=== PATIENT | male | born 1990 | race Caucasian/White ===

== ENCOUNTER 2024-03-12 21:00 | Inpatient (IN) ==
--- NOTE | 2024-03-12 21:24 | Emergency Department Note ---
Impression & Plan Suicidal ideation, Homicidal ideation ED Provider Note NAME: EVELYN CHOW AGE: 34 SEX: M : 1990 ARRIVES VIA: Law Enforcement Transport INFORMANT: [Patient][nursing] ED PROVIDER(S): [Bereket Morales MD] CHIEF COMPLAINT: Mental health evaluation HISTORY OF PRESENT ILLNESS: The patient is a 34-year-old male with intellectual disability. He presents by police escort. A 302 warrant has been signed. As per the warrant, the patient threatened to poison his mother's drink, slit her throat and then kill himself. The patient arrives cooperative, he denies making any comments to harm his mother or to harm himself. He is not homicidal he is not suicidal. He blames this whole thing on one of his neighbors. PMHx/PSHx/Social Hx: See Below PHYSICAL EXAM: GENERAL: Patient is in no acute distress. HEENT: No acute trauma, normocephalic atraumatic, mucous membranes moist, no nasal congestion. NECK: No stridor, no adenopathy, no meningismus, trachea is midline. LUNGS: Clear to auscultation bilaterally, no wheeze, no rhonchi, breath sounds equal. HEART: Mildly tachycardic, regular rhythm, no murmurs. ABDOMEN: Soft, nontender, no peritonitis. EXTREMITIES: No cyanosis, full range of motion of all the joints without pain or difficulty. NEUROLOGIC: Oriented x 3, no acute motor or sensory deficits, no focal weakness. Findings of intellectual disability noted. SKIN: No jaundice, no diaphoresis. Psychiatric: Cooperative, currently denies suicidal or homicidal ideation. He is a poor historian. DIFFERENTIAL DIAGNOSIS: Suicidality, homicidality, electrolyte imbalance, among others EMERGENCY DEPARTMENT PROCEDURES: MEDICAL DECISION MAKING: There is no leukocytosis or concerning anemia. There is a normal platelet count. No renal failure or significant electrolyte abnormality. No concerning liver enzyme elevation. Patient appears to be in a euthyroid state. Urinalysis does not show infection. Urine tox was negative. Alcohol level and aspirin levels were undetectable. COVID test was negative. Tylenol level was slightly high at 48, the patient had apparently taken 2 extra strength Tylenol before arrival. A repeat Tylenol level several hours later showed that the value was decreasing-no toxicity. Patient has been cooperative. He was felt medically clear. Psychiatry case management did spend some time talking with him and his mother. At this point, it has been decided to uphold the 302 as the patient appears to be a risk to himself as well as others. The medical portion of the 302 was completed and signed. Currently, the patient is resting comfortably. He has not been aggressive or loud. A psychiatric bed search is underway. For now, his care is being assumed by Dr. Underwood at the change of shift. Prior/Outside records/notes reviewed: None Imaging/x-ray results per my interpretation: Chronic Medical/Social conditions affecting care: Intellectual disability Care/Management discussed with: Psychiatry case management. Level of care consideration(s): After review of the information above and other included data: -- The patient will require an involuntary psychiatric admission. DISPOSITION: Still a patient in our ED. Past Med/Surg History Problem List Homicidal ideation (Acute) Suicidal ideation (Acute) Gastric ulcer (Chronic) Mental retardation (Chronic) C. difficile colitis (Acute) C. difficile diarrhea Hypokalemia (Acute) Medical History Chronic abdominal pain Social History Smoking Status: Current every day smoker Tobacco Type: Cigarettes and Smokeless Tobacco (Dip or Chew) Feels Safe at Home: Yes and No Gender Identity: Male Allergies Allergies Allergy/AdvReac Type Severity Reaction Status Date / Time ibuprofen AdvReac Unknown VOMITING Unverified 07/31/15 11:20 naproxen AdvReac Unknown vomiting Verified 07/31/15 11:20 Home Meds Home Medications Medication Instructions Recorded Confirmed [id number] 2 tabs PO BID PRN Migraine ##0 08/23/15 (MIGRAINE FORMULA) Acetaminophen/Diphenhydramine 2 tab PO HS #0 tabs 08/23/15 06/27/23 (Tylenol Pm) DIPHENHYDRAMINE HCL (BENADRYL) 50 mg PO PRN UD ##0 08/23/15 Previous Rx's Medication Instructions Recorded Vancomycin HCl 250 mg PO UD 1 day ##1 09/01/15 Results & Data (ED) Vital Signs Vital Signs - 24 hr 03/12/24 21:22 03/12/24 22:45 03/12/24 23:00 Temperature 36.8 C Temperature Source Oral Pulse Rate 97 H Pulse Rate [Finger] 89 82 Respiratory Rate 19 16 16 Respiratory Effort / Characteristics Non-Labored Spontaneous Non-Labored Respiratory Depth Normal Normal Respiratory Pattern Regular Regular Blood Pressure 137/84 Blood Pressure [Right Arm] 153/83 H 132/77 Blood Pressure Mean 101 Blood Pressure Mean [Right Arm] 106 95 Pulse Oximetry 97 99 97 Oxygen Delivery Method Room Air Room Air Room Air Sepsis Recent Fever Within 48 Hours No Sepsis New/Unexplained Change in Mental Status No Sepsis Action Taken by Nursing No Action Required Home Medications Current Medication List: was personally reviewed by me Laboratory Data Attestation: I reviewed the patient's lab results. 03/12/24 21:26 03/12/24 21:26 Lab Results 03/12/24 03/12/24 Range/Units 21:26 22:50 WBC 5.96 (4.8-10.8) K/ul RBC 4.28 L (4.70-6.10) M/uL Hgb 14.0 (14.0-18.0) g/dl Hct 42.5 (42.0-52.0) % MCV 99.3 (80.0-100.0) fL MCH 32.7 (25.0-34.0) pg MCHC 32.9 (32.0-36.0) g/dL RDW Std Deviation 46.4 H (36.4-46.3) fL RDW Coeff of Brandon 12.6 (11.5-14.5) % Plt Count 244 (130-400) K/uL MPV 9.5 (9.4-12.4) fL Immature Gran % (Auto) 0.2 % Neut % (Auto) 75.8 % Lymph % (Auto) 16.6 % Mcdowell % (Auto) 6.7 % Eos % (Auto) 0.2 % Baso % (Auto) 0.5 % Neut # (Auto) 4.52 (1.40-6.50) K/uL Lymph # (Auto) 0.99 L (1.20-3.40) K/uL Mcdowell # (Auto) 0.40 (0.11-0.59) K/uL Eos # (Auto) 0.01 (0.00-0.50) K/uL Baso # (Auto) 0.03 (0.00-0.20) K/uL Immature Gran # (Auto) 0.01 (0.01-0.20) K/uL Sodium 141 (136-145) mmol/L Potassium 3.6 (3.5-5.1) mmol/L Chloride 106 (98-107) mmol/L Carbon Dioxide 26 (21-32) mmol/L Anion Gap 9 (3-11) BUN 11 (6-23) mg/dl Creatinine 1.07 (0.6-1.4) mg/dl Est Cr Clr Drug Dosing 75.7 ml/min eGFR 94.56 BUN/Creatinine Ratio 10.3 (10-20) Glucose 98 (70-99(Fasting)) mg/dl Calcium 9.6 (8.6-10.3) mg/dl Total Bilirubin 0.2 (0.2-1.0) mg/dl AST 19 (13-39) U/L ALT 13 (7-52) U/L Alkaline Phosphatase 65 (34-104) U/L Total Protein 7.6 (6.0-8.3) gm/dl Albumin 4.9 (3.4-5.0) gm/dl Globulin 2.7 (2.5-4.0) gm/dl Albumin/Globulin Ratio 1.8 (0.9-2) TSH 1.452 (0.300-4.500) uIu/ml Urine Color Yellow Urine Appearance Clear (Clear) Urine pH 6.0 (4.5-7.5) Ur Specific [place] 1.005 (1.000-1.030) Urine Protein Negative (Negative) Urine Glucose (UA) Negative (Negative) Urine Ketones Negative (Negative) Urine Blood Negative (Negative) Urine Nitrite Negative (Negative) Urine Bilirubin Negative (Negative) Urine Urobilinogen Negative (Negative) Ur Leukocyte Esterase Negative (Negative) Salicylates 9.1 (3.0-30) mg/dl Urine Opiates Screen Neg (Neg) Ur Methadone, Qual Neg (Neg) Urine Fentanyl Screen Neg (Neg) Acetaminophen 48 H 27 (10-30) ug/ml Urine Barbiturates Neg (Neg) Ur Phencyclidine (PCP) Neg (Neg) U Amphetamin/Meth Scrn Neg (Neg) MDMA (Ecstasy) Screen Neg (Neg) U Benzodiazepines Scrn Neg (Neg) Ur Cocaine Metabolite Neg (Neg) U Marijuana (THC) Screen Neg (Neg) Ethyl Alcohol mg/dL < 10.0 (<10.0) mg/dl SARS-CoV-2, RNA, NAAT NEGATIVE (NEGATIVE) Discharge Plan Visit Data Chief Complaint: Mental Health Evaluation Stated Complaint: 302 ED Provider: Bereket Morales Discharge Problem: Suicidal ideation, Homicidal ideation Patient Disposition: Still a Patient Condition: Good Forms Stand Alone Forms: My [facility], Suicide Prevention Resources Prescriptions Prescriptions: No Action Acetaminophen/Diphenhydramine (Tylenol Pm) 500 MG/25 MG tablet 2 tab PO HS Qty: 0 DIPHENHYDRAMINE HCL (BENADRYL) 25 MG tablet 50 mg PO PRN UD Qty: 0 [id number] (MIGRAINE FORMULA) 1 TAB tablet 2 tabs PO BID PRN (Reason: Migraine) Qty: 0 Vancomycin HCl 250 MG/5 ML suspension 250 mg PO UD 1 Days Qty: 1 0RF Rx Instructions: As directed Referrals Referrals: PCP,NO [Primary Care Provider] -
[2024-03-12 21:43] LABS: Basophils # (auto) 0.03 K/uL (0.00-0.20); Basophils % (auto) 0.5 %; Eosinophils # (auto) 0.01 K/uL (0.00-0.50); Eosinophils % (auto) 0.2 %; Hematocrit (blood only) 42.5 % (42.0-52.0); Immature Granulocytes # (auto) 0.01 K/uL (0.01-0.20); Immature Granulocytes % (auto) 0.2 %; Lymphocytes # (auto) 0.99 K/uL (1.20-3.40); Lymphocytes % (auto) 16.6 %; Mean Corpuscular Hemoglobin 32.7 pg (25.0-34.0); Mean Corpuscular Hgb Conc 32.9 g/dL (32.0-36.0); Mean Corpuscular Volume 99.3 fL (80.0-100.0); Mean Platelet Volume 9.5 fL (9.4-12.4); Monocytes % (auto) 6.7 %; Neutrophils # (auto) 4.52 K/uL (1.40-6.50); Neutrophils % (auto) 75.8 %; Platelet Count 244 K/uL (130-400); RDW Coefficient of Variation 12.6 % (11.5-14.5); RDW Standard Deviation 46.4 fL (36.4-46.3); Red Blood Count 4.28 M/uL (4.70-6.10); White Blood Count 5.96 K/ul (4.8-10.8)
[2024-03-12 21:46] LABS: Appearance Urine Clear (Clear); Bilirubin Urine Negative (Negative); Blood Urine Negative (Negative); Color Urine Yellow; Glucose Urine UA Negative (Negative); Ketones Urine Negative (Negative); Leukocyte Esterase Urine Negative (Negative); Nitrite Urine Negative (Negative); Protein Urine Negative (Negative); Specific Gravity Urine 1.005 (1.000-1.030); Urobilinogen Urine Negative (Negative)
[2024-03-12 22:00] LABS: Albumin Globulin Ratio 1.8 (0.9-2); Albumin Level 4.9 gm/dl (3.4-5.0); BUN Creatinine Ratio 10.3 (10-20); Bilirubin,Total 0.2 mg/dl (0.2-1.0); Calcium 9.6 mg/dl (8.6-10.3); Creatinine Clr Calc Pharmacy 75.7 ml/min; Globulin 2.7 gm/dl (2.5-4.0); Potassium 3.6 mmol/L (3.5-5.1); Total Protein 7.6 gm/dl (6.0-8.3)
[2024-03-12 22:15] LABS: Thyroid Stimulating Hormone 1.452 uIu/ml (0.300-4.500)
[2024-03-12 22:19] LABS: Salicylate 9.1 mg/dl (3.0-30)
[2024-03-12 22:40] LABS: Amphetamines+Metham, Urine Neg (Neg); Barbiturates, Urine Neg (Neg); Benzodiazepine, Urine Neg (Neg); Cocaine, Urine Neg (Neg); Fentanyl, Urine Neg (Neg); MDMA (Ecstacy), Urine Neg (Neg); Marijuana, Urine Neg (Neg); Methadone, Urine Neg (Neg); Opiate, Urine Neg (Neg); Phencyclidine, Urine Neg (Neg)
[2024-03-13] MEDS ORDERED: NICOTINE 21 MG/24 HR TDSY TD STA (01:38)
[2024-03-13] MEDS ORDERED: Nursing to Pharmacy Communication SCH (01:45)
[2024-03-13] MEDS: NICOTINE 21 MG/24 HR TDSY TD STA (01:57)
--- NOTE | 2024-03-13 05:53 | Emergency Department Note ---
ED Visit Note Patient signed out to me at change of shift from Dr. Morales. Patient medically cleared at time of signout, 302 already signed by him in bed search underway. Mother uncomfortable having the patient return home and would like placement for additional treatment. Patient asleep during my overnight shift. No other concerns reported to be by nursing staff. Patient signed out to Dr. Tobar in the morning pending additional evaluation and final disposition. .
--- NOTE | 2024-03-13 06:46 | Emergency Department Note ---
ED Visit Note Patient signed out to me by Dr. Underwood at 06:45 AM on 03/13/2024. Patient is a 34-year-old male who presented under a 302 warrant. 302 was filed by the patient's mother. The patient had threatened to poison his mother's drink, slit her throat and then kill her. Patient is intellectually disabled. He is not homicidal and is not suicidal on arrival to the emergency department. He mother petitioned the 302 and it was upheld. He was medically cleared by previous providers. Psychiatry consult was placed by Dr. Underwood and psychiatry came down to evaluate the patient and was agreeable to inpatient psychiatric admission to [facility] psychiatric unit, [facility]. However, there is no bed on the unit at this point. Plan for admission to their unit once a bed becomes available. .
--- NOTE | 2024-03-13 13:43 | Psychiatric Consultation ---
Date of Consultation March 13, 2024 Impression / Recommendations Impression Psychiatry consult due to difficult placement. [facility] has bed availability this afternoon, patient accepted for admission once bed available. Psych History Chief Complaint "[]". Past Psychiatric History Current Psychiatric Diagnosis: Does not know History of Previous Suicide Attempt: No Allergies Allergy/AdvReac Type Severity Reaction Status Date / Time ibuprofen AdvReac Unknown VOMITING Verified 03/13/24 03:15 naproxen AdvReac Unknown vomiting Verified 03/13/24 03:15 Home Medications Medication Instructions Recorded Confirmed Type No Known Home Medications 03/13/24 03/13/24 History Patient History Medical History Chronic abdominal pain Social History Smoking Status: Current every day smoker Tobacco Type: Cigarettes and Smokeless Tobacco (Dip or Chew) Feels Safe at Home: Yes and No Gender Identity: Male Physical Exam Vital Signs (Past 24 Hours): Last Vital Signs Temp 36.8 C 03/12/24 21:22 Pulse 75 03/13/24 09:38 Resp 16 03/13/24 09:38 BP 112/66 03/13/24 09:38 Pulse Ox 97 03/13/24 09:38 O2 Del Method Room Air 03/13/24 09:38 Results & Data (PSY) Medications Administered Miscellaneous (Remove Nicoderm Patch) 1 each N/A DAILY@0859 [facility] Stop: 04/12/24 08:58 Last Admin: 03/13/24 08:09 Dose: Not Given Documented By: MMG Coding Level of Care Code None
--- OUTSIDE RECORDS SUMMARY | 2024-03-13 14:50 | External Medical Summary | Continuity of Care Document ---
Author Name Unknown Organization [facility] [address] [facility] [address] [phone] Encounter [facility] FINNBR [id number] Date(s): 11/08/23 - 11/08/23 [facility] [address] [facility] [address] [facility], [address] [address] [phone] Encounter Diagnosis Body mass index [BMI] 19.9 or less, adult(Discharge Diagnosis) - 11/08/23 Intellectual developmental disorder, moderate(Discharge Diagnosis) - 11/08/23 History of ankle sprain(Discharge Diagnosis) - 11/08/23 Discharge Disposition: Home or Self Care Attending Physician: RAFFY Boogie, Francia Jacobson Allergies, Adverse Reactions, Alerts Substance Criticality Severity Reaction Reaction Severity Status ibuprofen stomach pains Active aspirin Unknown reaction Act rachael Pollen Active Immunizations Given and Recorded Vaccine Date Status Refusal Reason poliovirus vaccine, inactivated 06/01/97 Recorded poliovirus vaccine, inactivated 06/01/97 Recorded poliovirus vaccine, inactivated 92 Recorded poliovirus vaccine, inactivated 92 Recorded diphtheria/tetanus/pertuss, acel (DTaP) 06/01/97 R ecorded diphtheria/tetanus/pertuss, acel (DTaP) 06/26/93 R ecorded diphtheria/tetanus/pertuss, acel (DTaP) 92 R ecorded diphtheria/tetanus/pertuss, acel (DTaP) 92 R ecorded hepatitis B pediatric vaccine 12/21/96 Recorded hepatitis B pediatric vaccine 92 Recorded hepatitis B pediatric vaccine 92 Recorded haemophilus b conjugate (HbOC) vaccine 06/26/93 Re corded haemophilus b conjugate (HbOC) vaccine 92 Re corded measles/mumps/rubella virus vaccine 06/26/93 Recor ded Medications Tylenol Start: 04/02/18 2:31:00 PM EST Start Date: 04/02/18 Status: Ordered Mental Status 11/08/23 Barriers to Learning one year None evide nt Mandatory Health Literacy Documentation Yes Health Literacy Communication Barriers N ever Primary Language Georgian Problem List Condition Confirmation Course Effective Dates Status Health St atus Informant Right ankle pain Confirmed Active Avulsion fracture of left ankle Confirmed Active Laparoscopic Appendectomy Confirmed Active Left ankle pain Confirmed Active Poor social situation Confirmed Active Left ankle sprain Confirmed Active Tobacco user Confirmed Active Diagnosis Diagnosis Type Effective Dates Health Status Clinical Service Informant Body mass index [BMI] 19.9 or less, adult Discharge Diagnosis 11/08/23 Non-Specified Intellectual developmental disorder, moderate Discharge Diagnosis 11/08/23 Non-Specified History of ankle sprain Discharge Diagnosis 11/08/23 Non-Specified Procedures Procedure Date Related Diagnosis Body Site Status X-ray of left ankle 1 08/26/19 Com pleted appendectomy - 02/2012 Co mpleted None Completed None Completed 1No acute fracture or dislocation. Vital Signs Most recent to oldest [Reference Range]: 1 Height 178 cm (11/08/23 3:06 PM) Patient Weight 53 kg (11/08/23 3:06 PM) Body Mass Index 16.73 kg/m2 (11/08/23 3:06 PM) Temperature [36.5-37.9 DegC] 36.6 DegC (11/08/23 3:06 PM) Heart Rate 82 bpm (11/08/23 3:06 PM) Blood Pressure 110/80mmHg (11/08/23 3:06 PM) Cuff Pulse Pressure 30 mmHg (11/08/23 3:06 PM) Social History Social History Type Response Smoking Status Current every day he prema smoker Sex Male Patient Care team information Care Team Related Persons Name: PITER CHOW Address: [address] [phone] Name: HECTOR CHOW Address: home [address] [place] [phone]
--- OUTSIDE RECORDS SUMMARY | 2024-03-13 14:50 | External Medical Summary | Continuity of Care Document ---
Author Name Unknown Organization [facility] [address] [place] [id number] Address [address] [place] [phone] Encounter [facility] FIN[facility]BR [id number] Date(s): 10/22/23 - 10/22/23 [facility] [address] [facility] [address] [facility] [address] [place], [place] [id number] Encounter Diagnosis Left ankle sprain(Discharge Diagnosis) - 10/22/23 Discharge Disposition: Home or Self Care Attending Physician: MD Ocasio Philip J Referring Physician: MD Ocasio Philip J Allergies, Adverse Reactions, Alerts Substance Criticality Severity Reaction Reaction Severity Status ibuprofen stomach pains Active aspirin Unknown reaction Act rachael Pollen Active Assessment and Plan Extracted from: Title:Orthopaedics Office Visit Note Author:Monae gutierrez MD, Philip J Date:10/22/23 1.Left ankle sprain Evelyn is having pain over the lateralankle ligaments and has beenhesitant tofully weight-bear. He is working on somehome exercises for hisankleand is requesting a new PTreferral. As he has been wearing thebrace and boot for several weeks, I have asked him togradually discontinue these. The x-rays been reviewed with the patient and he is aware that there is noankle fracture. Evelyn will follow-up with me as needed, he should follow-up if he isdifficulty progressing throughPT. Immunizations Given and Recorded Vaccine Date Status [...] Start Date: 04/02/18 Status: Ordered Mental Status 10/22/23 Barriers to Learning one year None evide nt Mandatory Health Literacy Documentation Yes Health Literacy Communication Barriers N ever Primary Language Uzbek Problem List Condition Confirmation Course Effective Dates Status Health St atus Informant Right ankle pain Confirmed Active Avulsion fracture of left ankle Confirmed Active Laparoscopic Appendectomy Confirmed Active Left ankle pain Confirmed Active Poor social situation Confirmed Active Left ankle sprain Confirmed Active Tobacco user Confirmed Active Diagnosis Diagnosis Type Effective Dates Health Status Cl inical Service Informant Left ankle sprain Discharge Diagnosis 10/22/23 Procedures Procedure Date Related Diagnosis Body Site Status X-ray of left ankle 1 08/26/19 Com pleted appendectomy - 02/2012 Co mpleted None Completed None Completed 1No acute fracture or dislocation. Vital Signs Most recent to oldest [Reference Range]: 1 Height 178.5 cm (10/22/23 10:18 AM) Patient Weight 51.8 kg (10/22/23 10:18 AM) Body Mass Index 16.26 kg/m2 (10/22/23 10:18 AM) Social History Social History Type Response Smoking Status Current every day he prema smoker Sex Male Ortho Outpt Note * MD Ocasio Philip J: PERFORM Event Display: Ortho Outpt Note Authored Date: [id number] Referring Provider MD Ocasio Philip J Chief Complaint Left ankle pain since falling 3 months ago. He is wearing a boot which he had at home. History of Present Illness Evelyn is a [id number] referred foraboveinjury. He reports havingan injury inApril where heslid down about 13 steps and noticed some left ankle painafter this. He has a history ofprevious ankleinjuriesand was seen here for thesefrom [id number]. He resume someexercisesfor his ankleinjury and felt this was helping, but he sufferedanother injury andMay when heslipped on a muddy surface. Since that time he has been wearinga Velcro ankle brace as well asacam boot. He continues to work onrange of motion exercises, but has been hesitant totake the boot off for fear ofreinjury. He came in today primarily forx-rays and for evaluation of his ankle, and also like to attend physical therapyas he felt this was helpful with hisprevious injury. Past medical history: Unremarkable Current medications:Tylenol and Radha Allergies:Aspirin Social history:Lives at a homeless intermediate. +Chewing tobacco and cigarette use Review of Systems Positive for weight loss, stomach pain, dry skin, bleeding problems, headaches, extremity numbness.All other systems are negative. Physical Exam Vitals & Measurements HT:178.5cm WT:51.800kg(Dosing) WT:51.8kg BMI:16.26 General:Disheveledappearing Left ankle:Wearing a cam boot and Velcro ankle brace which are easily removed. Dystrophic andpoorly maintainedtoenails arenoted. He is able to dorsiflex, plantarflex, invert, and frank the ankle, but reports lateralankle pain at the end range of motion. Noswelling or bruising is noted. He is tender over the lateral ankle ligaments. Negative anterior drawer test. He reports lateral ankle pain with resisteddorsiflexion and plantarflexionaswell as resisted inversion andeversion. Nontender throughout the remainder of the ankle. Diagnostic Results Orthopedic Radiological Report X-ray completed [facility] Exam:Left ankle series Comparison: Left ankle series from 08/26/2019 Clinical indication:Left ankle injury Findings:I have personally performed the interpretation of a3 view series of the left ankle with AP, lateral, and oblique views. There are no acute findings noted. The medial and lateral malleoli are intact. Ankle mortise is well-maintained. Diffuse osteopenia appreciated. Smallcalcific densities withedema noted anteriorly. This is all unchanged from hisprevious images. Impression:Negative left ankle series, diffuse osteopenianoted. Assessment/Plan 1.Left ankle sprain Evelyn is having pain over the lateralankle ligaments and has beenhesitant tofully weight-bear.He is working on somehome exercises for hisankleand is requesting a new PTreferral. As he has been wearing thebrace and boot for several weeks, I have asked him togradually discontinue these. The x-rays been reviewed with the patient and he is aware that there is noankle fracture. Evelyn will follow-up with me as needed, he should follow-up if he isdifficulty progressing throughPT. Problem List/Past Medical History Ongoing Avulsion fracture of left ankle Laparoscopic Appendectomy Left ankle pain Left ankle sprain Poor social situation Right ankle pain Tobacco user Procedure/Surgical History X-ray of left ankle| Service Date: 08/26/2019NoneNoneappendectomy - 02/2012 Medications acetaminophen(Tylenol) Allergies Pollen aspirinUnknown reaction ibuprofenstomach pains Social History Smoking Status Current every day heavy smoker Family History Diabetes: Father. High Blood Pressure: Father. Parkinson disease: Father. Seizure: Maternal Uncle. Health Status Family Member(s) Immunizations Vaccine Date Status poliovirus vaccine, inactivated 06/01/1997 Recorded poliovirus vaccine, inactivated 06/01/1997 Recorded diphtheria/tetanus/pertuss, acel (DTaP) 06/01/1997 Recorded hepatitis B pediatric vaccine 12/21/1996 Recorded haemophilus b conjugate (HbOC) vaccine 06/26/1993 Recorded measles/mumps/rubella virus vaccine 06/26/1993 Recorded diphtheria/tetanus/pertuss, acel (DTaP) 06/26/1993 Recorded hepatitis B pediatric vaccine 1992 Recorded hepatitis B pediatric vaccine 1992 Recorded poliovirus vaccine, inactivated 1992 Recorded poliovirus vaccine, inactivated 1992 Recorded diphtheria/tetanus/pertuss, acel (DTaP) 1992 Recorded diphtheria/tetanus/pertuss, acel (DTaP) 1992 Recorded haemophilus b conjugate (HbOC) vaccine 1992 Recorded Recommendations Health Maintenance Pending(in the next year) OverDue Adult Influenza Vaccine due10/26/22and every 1year Due Adult COVID-19 Vaccination due10/22/23Unknown Frequency Adult Social Determinants of Health Screening due10/22/23Unknown Frequency Adult Tdap/Td Vaccine due10/22/23Unknown Frequency Hepatitis C Screening due10/22/23One-time only Lipid Screening due10/22/23Unknown Frequency Satisfied(in the past 1 year) Satisfied Body Mass Index on10/22/23.Satisfied by LANCE Correa [place]ita Electronic Signature on File Electronically Reviewed/Signed by: Romero Ocasio MD Author Signature Dt/Tm:10/22/2023 05:27 PM Division of Sports Medicine [facility] Patient Care team information Care Team Related Persons Name: PITER CHOW Address: [address] [phone] Name: HECTOR CHOW Address: [address] [phone]"
[2024-03-13] MEDS ORDERED: MAGNESIUM HYDROXIDE SUSP 30 ML UDC PO PRN (16:00)
[2024-03-13] MEDS ORDERED: SODIUM CHLORIDE 0.65% NA SOLN 45 ML (OCEAN) PRN (16:00)
[2024-03-13] MEDS ORDERED: ALUMINUM/MAGNESIUM SUSP 30 ML UDC PO PRN (16:00)
[2024-03-13] MEDS ORDERED: BISMUTH SUBSALICYLATE 262 MG CHEW PO PRN (16:00)
[2024-03-13] MEDS: NICOTINE POLACRILEX 2 MG GUM MT PRN (17:36)
[2024-03-13] MEDS: NICOTINE 21 MG/24 HR TDSY TD SCH (19:42)
[2024-03-13] MEDS ORDERED: OLANZapine 5 MG TABLET PO PRN (20:43)
[2024-03-13] MEDS ORDERED: OLANZapine 10 MG/2.1 ML SDV IM PRN (20:43)
[2024-03-13] MEDS ORDERED: OLANZapine 5 MG TABLET PO SCH (21:00)
[2024-03-13] MEDS: risperiDONE 0.25 MG TAB PO SCH (21:57)
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
[2024-03-15] MEDS: risperiDONE 0.5 MG TABLET PO SCH (21:18)
[2024-03-15] MEDS ORDERED: OLANZapine 5 MG TABLET PO SCH (22:00)
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
[2024-03-16] MEDS: DIVALPROEX EXTENDED RELEASE 500 MG TAB PO SCH (21:29)
--- NOTE | 2024-03-17 09:07 | Discharge Summary ---
Date of Service March 17, 2024 History of Present Illness Patient is a limited historian. Patient reports that the downstairs neighbor was mimicking his voice and reported SI and HI. Mother was having trouble with cell phone and believes this to be the cause. He reports this has never happened in the past. He denies current SI and HI. Throughout his explanation he presented nonlinear speech at times however improved on directed questioning. He reports no intention of poisoning her drink and that they often share beverages together so that would never happen. Reports being close to his mother and wants to go home. He does not member his mother's phone number. He denies past incidents such as this. He denies past psychiatric history. Chart review shows that on June 27, 2023 he made threatening statements patient does not remember this. Reports smoking 2 packs of cigarettes a day and chews 2 cans of tobacco and reports current withdrawal headache and cravings. He denies drug or alcohol use. Reports fair sleep and appetite preceding the event. Listens to [employer] music and this brings him sophie. 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 Is looking forward to pity in 2 weeks and wants to get out by then. He does not have a weed cutter however is interested. Reports that mother is guardian however is unsure of the paperwork and unable to explain the process of took for her to get guardianship over him. Reports feeling better on risperidone and is calmer. Provides permission for us to contact his mother. Called patient's mother (HECTOR CHOW [phone]): did not connect, unable to leave [phone]: wrong number, [facility] Physical Exam Mental Examination Appearance: Disheveled Eye Contact: Direct Eye Contact Motor Behavior: Unremarkable Speech: Delayed Mood: Euthymic Affect: Congruent Thought Process: Circumstantial (at times) and [place] Thought Content: Intact and Poverty of Content Hallucinations: None Insight: Poor Judgement: Poor Vital Signs (Past 24 Hours) Last Vital Signs Temp 36.4 C L 03/17/24 06:42 Pulse 86 03/17/24 06:42 Resp 16 03/17/24 06:42 BP 115/74 03/17/24 06:42 Pulse Ox 99 03/13/24 16:45 O2 Del Method Room Air 03/13/24 16:45 Principal Diagnosis Unspecified impulse control disorder Psychiatric Data See daily stay summary. In short, safety was maintained and the patient was cooperative with care. Medication changes included starting Depakote ER 500mg HS and they tolerated this well. A safety plan was completed prior to discharge. He presents a history intellectual disability and verbal threats targeting family, neighbors, friends, healthcare staff with remorse after. Recently behaviors have escalated at home and endorsed SI and HI and was admitted to our facility under a 302 involuntary commitment. He presented stable behaviors and mood on the unit and denied SI and HI. He engaged in improved self care and followed recommendations. Given recurrent aggression and threats in the community he was started on Depakote for aggression, mood, anxiety, weight gain (BMI 17.6), and sedation (sleep impairments). He tolerated the medication well. Patient was discharged back to his home. Police informed and noted he was able to return back to his home. Day of Discharge Assessment Today the patient voices readiness for discharge. They note improvement in mood and deny thoughts to harm self or others. Thoughts remain organized and they are improved from admission. There is no evidence of psychosis. They agree to take mediations as prescribed and keep follow-up appointments. They are stable for discharge to outpatient level of care. Transition of Care Transition Of Care Record: was reviewed with the patient Advance Directives Advance Directives Information Provided: No Advance Directives: No Mental Health Advance Directive: No Advance Directives on File: No Living Will: No Power of Internal Recruiter: No Advance Directives Reason:: Declines as Mental Health Visit. Risk Factors Assessment Male: Yes : Yes Do You Have Access To A Gun?: No (n/a) Health Problems: No Mental Health Diagnoses: Yes Substance Use Disorders: No Previous Attempt: No Family History of Suicide: No Previous Psychiatric Hospitalization: No Hopelessness: No Protective Factors Assessment Quaker Beliefs: No : No Responsible for Young Children: No Employed: No Stable Relationships: Yes Supportive Family: Yes Good Rapport with Provider: Yes Absence of Any Risk Factors Above: No Discharge Data Consultations 03/13/24 05:55 Consult Psychiatry Routine Lab Results 03/12/24 03/12/24 21:26 22:50 WBC 5.96 RBC 4.28 L Hgb 14.0 Hct 42.5 MCV 99.3 MCH 32.7 MCHC 32.9 RDW Std Deviation 46.4 H RDW Coeff of [place] 12.6 Plt Count 244 MPV 9.5 Immature Gran % (Auto) 0.2 Neut % (Auto) 75.8 Lymph % (Auto) 16.6 Luce % (Auto) 6.7 Eos % (Auto) 0.2 Baso % (Auto) 0.5 Neut # (Auto) 4.52 Lymph # (Auto) 0.99 L Luce # (Auto) 0.40 Eos # (Auto) 0.01 Baso # (Auto) 0.03 Immature Gran # (Auto) 0.01 Sodium 141 Potassium 3.6 Chloride 106 Carbon Dioxide 26 Anion Gap 9 BUN 11 Creatinine 1.07 Est Cr Clr Drug Dosing 75.7 eGFR 94.56 BUN/Creatinine Ratio 10.3 Glucose 98 Calcium 9.6 Total Bilirubin 0.2 AST 19 ALT 13 Alkaline Phosphatase 65 Total Protein 7.6 Albumin 4.9 Globulin 2.7 Albumin/Globulin Ratio 1.8 TSH 1.452 Urine Color Yellow Urine Appearance Clear Urine pH 6.0 Ur Specific [place] 1.005 Urine Protein Negative Urine Glucose (UA) Negative Urine Ketones Negative Urine Blood Negative Urine Nitrite Negative Urine Bilirubin Negative Urine Urobilinogen Negative Ur Leukocyte Esterase Negative Salicylates 9.1 Urine Opiates Screen Neg Ur Methadone, Qual Neg Urine Fentanyl Screen Neg Acetaminophen 48 H 27 Urine Barbiturates Neg Ur Phencyclidine (PCP) Neg U Amphetamin/Meth Scrn Neg MDMA (Ecstasy) Screen Neg U Benzodiazepines Scrn Neg Ur Cocaine Metabolite Neg U Marijuana (THC) Screen Neg Ethyl Alcohol mg/dL < 10.0 SARS-CoV-2, RNA, NAAT NEGATIVE Hospital Course (1) Impulse control disorder, unspecified: (2) Threatening suicide: (3) Threatening behavior: (4) Intellectual disability: (5) Tobacco dependence with current use: Plan 03/16/2024: Discontinue risperidone. start Depakote ER 500 mg at bedtime. 03/15/2024: Increase risperidone to 0.5 mg twice daily. 03/14/2024: The patient was admitted to the [facility] ([facility] mental health unit) on q15 min checks (behavioral with suicide precautions) for safety. The patient will participate in group, recreational, and milieu therapies and will be offered additional individual and family sessions as clinically appropriate. -Risperidone 0.25mg BID Mental Health & Subst Abuse Tx Psychiatrist Date Of Appointment With Psychiatric Provider: N/A Time of Appointment with Psychiatrist: n/a Therapist Name of Therapist: n/a Date of Therapist Appointment: N/A Time of Therapist Appointment: n/a Mate Relief Name of Mate Relief: Bernardo VILLATORO (ID Supports Coordination) Phone Number for Mate Relief: [phone] Time of Appointment with Mate Relief: n/a Case Management Appointment Comment: passport support manager will contact you to schedule appts after discharge Post Discharge Appointments Primary Care Physician Name Of Family Doctor/PCP: [facility] ([place] Primary Care Date of Future Appointment with PCP: 03/31/24 Time of Appointment with PCP: 1:00PM Provider Appointment Comment: This appt. is to refill revenue manager Name of Specialist: KAY (PCP) Ariel Her Phone Number for Specialist: [phone] Date of Appointment with Specialist: 05/21/23 Time of Appointment with Specialist: 9:45AM Specialty Appointment Comment: This is a new pt. appt. to establish services & refill medication Discharge Plan Discharge Items Patient Disposition: Home - Self-Care Reason For Visit: UNSPECIFIED DEPRESSION Discharge Diagnosis: (1) Impulse control disorder, unspecified: (2) Threatening suicide: (3) Threatening behavior: (4) Intellectual disability: (5) Tobacco dependence with current use: Condition on Discharge: Good Activity: Resume your previous activity Non-emergency contact: Primary Care Provider and Campus Police Officer Call non-emergency contact if: you have any medication questions and your symptoms worsen Follow-up/Referrals: PCP,NO [Primary Care Provider] - Diet: Regular Addtl Attending Provider Instructions: -Continue Depakote 500mg at bedtime -Follow-up with case management and outpatient doctor for medication refills Pending Studies at Discharge: No Stand-Alone Forms: My Now In Store, Smoking Cessation Medications and DC Order Prescriptions: New divalproex 500 mg Tablet Extended Release 24 Hr 500 mg PO HS Qty: 30 0RF nicotine [Nicoderm CQ] 21 mg/24 hr Patch 24 Hour 1 patch transdermal QAM Qty: 30 0RF Discharge Orders: Discharge Order (Routine); Ordered 03/17/24 Ordered By: Edwin Grewal Admission Data Admit Date/Time: 03/13/24 16:15 Attending Provider: Mandadi,Edwin R Admit Provider: Kendal Larry Primary Care Provider: PCP,NO Other Providers: Kendal Larry; Benjy Whitt; Kymberly Adler; Earlene Hurst; Edwin Grewal; Tammy Jose [place] [address] D/C day mgmt > 30 min Patient Type Established History Expanded Problem Focused Exam Expanded Problem Focused Medical Decision Making Moderate Complexity Diagnoses Impulse control disorder, unspecified F63.9 Threatening suicide R45.851 Threatening behavior R46.89 Intellectual disability F79 Tobacco dependence with current use F17.200
[2024-03-17] MEDS: hydrOXYzine HCl 25 MG TAB PO PRN (10:22)
[2024-03-17] MEDS: ACETAMINOPHEN 325 MG TAB PO PRN (15:27)
--- NOTE | 2024-03-18 09:02 | Psychiatric Progress Note ---
Date of Service March 17, 2024 Impression / Recommendations Impression Bertrand Ng is a 34-year-old white male, unemployed on disability, domiciled with mother, history of intellectual disability who presents with suicidal and homicidal ideation towards mother with plan to poison or cut throat. 302 petition completed by mother. Admitted on 03/13/24 16:15. A: Patient is tolerating Depakote well. Concern for mild tremor and will monitor; possibly anxiety related due to recent social and housing stressors. No safe discharge plan at this time as patient is barred from entering his home due to emergency PFA by mother. Pt presents poor independent function in the community and would require assistance to navigate housing and healthcare system to provide basic needs of mcc, sustenance, and treatment. Overall, I spent a total of 45 minutes with this case including review of chart records, nursing report, review of lab work, direct evaluation of the patient at bedside, counseling the patient, multidisciplinary team meeting, orders, gathering collateral and documentation in the electronic health record. (1) Impulse control disorder, unspecified: (2) Threatening suicide: (3) Threatening behavior: (4) Intellectual disability: (5) Tobacco dependence with current use: Plan 03/17/2024: Continue medications and treatment plan. 03/16/2024: Discontinue risperidone. start Depakote ER 500 mg at bedtime. 03/15/2024: Increase risperidone to 0.5 mg twice daily. 03/14/2024: The patient was admitted to the [facility] ([facility]) on q15 min checks (behavioral with suicide precautions) for safety. The patient will participate in group, recreational, and milieu therapies and will be offered additional individual and family sessions as clinically appropriate. -Risperidone 0.25mg BID Inventory Assets Strengths: family support, future oriented Needs: case management, independence Suicide Risk Level Suicide Risk Level: Moderate (q15 min suicide checks) Risk Factors Assessment Male: Yes : Yes Do You Have Access To A Gun?: No (n/a) Health Problems: No Mental Health Diagnoses: Yes Substance Use Disorders: No Previous Attempt: No Family History of Suicide: No Previous Psychiatric Hospitalization: No Hopelessness: No Protective Factors Assessment Orthodoxy Beliefs: No : No Responsible for Young Children: No Employed: No Stable Relationships: Yes Supportive Family: Yes Good Rapport with Provider: Yes Absence of Any Risk Factors Above: No Interval History Identifying Information Bertrand Ng is a 34-year-old white male, unemployed on disability, domiciled with mother, history of intellectual disability who presents with suicidal and homicidal ideation towards mother with plan to poison or cut throat. 302 petition completed by mother. Admitted on 03/13/24 16:15. Chief Complaint "Can't go home" Review of Systems Sleep Information Total Hours of Sleep: 5.5 Meal Information Percent Meal Consumed - Breakfast: 75 Percent Meal Consumed - Lunch: 100 Percent Meal Consumed - Dinner: 100 Subjective Subjective Patient was seen & assessed and interval progress reviewed with treatment team nursing and social work Patient is anxious about housing situation. Unsure if he can go back home. Explained to him mother placed PFA against him. Unsure of next steps. Does not have money or phone. Unable to present a safe plan for his future. Physical Exam Mental Examination Appearance: Disheveled Eye Contact: Direct Eye Contact Motor Behavior: Unremarkable Speech: Delayed Mood: Euthymic Affect: Congruent Thought Process: Circumstantial (at times) and [place] Thought Content: Intact and Poverty of Content Hallucinations: None Insight: Poor Judgement: Poor Vital Signs (Past 24 Hours) Last Vital Signs Temp 36.4 C L 03/18/24 06:42 Pulse 86 03/18/24 06:43 Resp 16 03/18/24 06:42 BP 115/84 03/18/24 06:43 Pulse Ox 99 03/13/24 16:45 O2 Del Method Room Air 03/13/24 16:45 Results & Data ([facility]) Current Inpatient Medications Current Inpatient Medications: Current Inpatient Medications Acetaminophen (Acetaminophen 325 Mg Tab) 650 mg PO Q4H PRN PRN Reason: Headache or Minor Fever Stop: 04/12/24 15:59 Last Admin: 03/17/24 15:27 Dose: 650 mg Al Hydrox/Mg Hydrox/Simethicone (Aluminum/Magnesium Susp 30 Ml Udc) 30 ml PO Q4H PRN PRN Reason: GI Upset Stop: 04/12/24 15:59 Bismuth Subsalicylate (Bismuth Subsalicylate 262 Mg Chew) 2 tab PO Q30M PRN PRN Reason: Loose Stool/Diarrhea Stop: 04/12/24 15:59 Divalproex Sodium (Divalproex Extended Release 500 Mg Tab) 500 mg PO HS RAMIN Stop: 04/15/24 21:59 Last Admin: 03/17/24 21:45 Dose: 500 mg Hydroxyzine HCl (Hydroxyzine Hcl 25 Mg Tab) 50 mg PO HSZ PRN PRN Reason: Insomnia Stop: 04/12/24 15:59 Hydroxyzine HCl (Hydroxyzine Hcl 25 Mg Tab) 25 mg PO Q4H PRN PRN Reason: Anxiety Stop: 04/12/24 15:59 Last Admin: 03/17/24 15:28 Dose: 25 mg Magnesium Hydroxide (Magnesium Hydroxide Susp 30 Ml Udc) 30 ml PO DAILY PRN PRN Reason: Constipation Stop: 04/12/24 15:59 Miscellaneous (Remove Nicoderm Patch) 1 each N/A DAILY@0859 RAMIN Stop: 04/13/24 08:58 Last Admin: 03/17/24 08:57 Dose: 1 each Nicotine (Nicotine 21 Mg/24 Hr Tdsy) 1 patch TD QAM RAMIN Stop: 04/12/24 16:14 Last Admin: 03/17/24 08:54 Dose: 1 patch Nicotine Polacrilex (Nicotine Polacrilex 2 Mg Gum) 2 piece MT PRN PRN PRN Reason: Nicotine Withdrawal Symptoms Stop: 04/12/24 15:59 Last Admin: 03/15/24 21:30 Dose: 2 piece Olanzapine (Olanzapine 5 Mg Tablet) 5 mg PO BID PRN PRN Reason: Agitation Stop: 04/12/24 20:59 Olanzapine (Olanzapine 10 Mg/2.1 Ml Sdv) 5 mg IM BID PRN PRN Reason: Agitation Stop: 04/12/24 20:42 Sodium Chloride (Sodium Chloride 0.65% Na Soln 45 Ml ([place])) 1 - 2 sprays NA PRN PRN PRN Reason: Nasal Dryness/Congestion Stop: 04/12/24 15:59 Mental Health & Subst Abuse Tx Psychiatrist Date Of Appointment With Psychiatric Provider: N/A Time of Appointment with Psychiatrist: n/a Therapist Name of Therapist: n/a Date of Therapist Appointment: N/A Time of Therapist Appointment: n/a Case Consultant Name of Case Consultant: [facility] ISABELLA Orourke Phone Number for Case Consultant: [phone] Time of Appointment with Case Consultant: n/a Case Management Appointment Comment: Amanda - Supports Coordinator at [place] [phone] Post Discharge Appointments Primary Care Physician Name Of Family Doctor/PCP: [facility] Primary [facility] Date of Future Appointment with PCP: 03/31/24 Time of Appointment with PCP: 1:00PM Provider Appointment Comment: This appt. is to refill linux consultant Name of Specialist: KAY (PCP) Ariel Her Phone Number for Specialist: [phone] Date of Appointment with Specialist: 05/21/23 Time of Appointment with Specialist: 9:45AM Specialty Appointment Comment: This is a new pt. appt. to establish services & refill medication
--- NOTE | 2024-03-18 13:58 | Psychiatric Progress Note ---
Date of Service March 18, 2024 Impression / Recommendations Impression Bertrand Ng is a 34-year-old white male, unemployed on disability, domiciled with mother, history of intellectual disability who presents with suicidal and homicidal ideation towards mother with plan to poison or cut throat. 302 petition completed by mother. Admitted on 03/13/24 16:15. A: Patient is tolerating Depakote well. Presents improved sleep and anxiety. Patient reflecting on recent complaints of verbal aggression and appears remorseful. Currently does not have a safe discharge plan given intellectual disability and lack of supports. Overall, I spent a total of 25 minutes with this case including review of chart records, nursing report, review of lab work, direct evaluation of the patient at bedside, counseling the patient, multidisciplinary team meeting, orders and documentation in the electronic health record. (1) Impulse control disorder, unspecified: (2) Threatening suicide: (3) Threatening behavior: (4) Intellectual disability: (5) Tobacco dependence with current use: Plan 03/18/2024: Continue medications and treatment plan. 03/17/2024: Continue medications and treatment plan. 03/16/2024: Discontinue risperidone. start Depakote ER 500 mg at bedtime. 03/15/2024: Increase risperidone to 0.5 mg twice daily. 03/14/2024: The patient was admitted to the [facility] ([facility] mental health unit) on q15 min checks (behavioral with suicide precautions) for safety. The patient will participate in group, recreational, and milieu therapies and will be offered additional individual and family sessions as clinically appropr iate. -Risperidone 0.25mg BID Inventory Assets Strengths: family support, future oriented Needs: case management, independence Suicide Risk Level Suicide Risk Level: Moderate (q15 min suicide checks) Risk Factors Assessment Male: Yes : Yes Do You Have Access To A Gun?: No (n/a) Health Problems: No Mental Health Diagnoses: Yes Substance Use Disorders: No Previous Attempt: No Family History of Suicide: No Previous Psychiatric Hospitalization: No Hopelessness: No Protective Factors Assessment Methodist Beliefs: No : No Responsible for Young Children: No Employed: No Stable Relationships: Yes Supportive Family: Yes Good Rapport with Provider: Yes Absence of Any Risk Factors Above: No Interval History Identifying Information Bertrand Ng is a 34-year-old white male, unemployed on disability, domiciled with mother, history of intellectual disability who presents with suicidal and homicidal ideation towards mother with plan to poison or cut throat. 302 petition completed by mother. Admitted on 03/13/24 16:15. Chief Complaint "Real good" Review of Systems Sleep Information Total Hours of Sleep: 5.5 Meal Information Percent Meal Consumed - Breakfast: 100 Percent Meal Consumed - Lunch: 100 Percent Meal Consumed - Dinner: 100 Subjective Subjective Patient was seen & assessed and interval progress reviewed with treatment team nursing and social work Overnight police delivered emergency PFA by mother. Upcoming court date on at 1:30 PM. Patient slept well and reports feeling rested. He reports his hands are shaking because of nicotine withdrawal. Says that his anxiety is better today. Reports Depakote is helping him sleep better. Has had no contact with his neighbors and her mother. He denies SI and HI. He is unsure of where to go next from the hospital and reports no other supports. He denies intent for physical aggression towards others and reports in the past and has only been verbal. Reports remorse for his past aggressions. Physical Exam Mental Examination Appearance: Disheveled Eye Contact: Direct Eye Contact Motor Behavior: Unremarkable Speech: Delayed Mood: Euthymic Affect: Congruent Thought Process: Circumstantial (at times) and [place] Thought Content: Intact and Poverty of Content Hallucinations: None Insight: Poor Judgement: Poor Vital Signs (Past 24 Hours) Last Vital Signs Temp 36.4 C L 03/18/24 06:42 Pulse 86 03/18/24 06:43 Resp 16 03/18/24 06:42 BP 115/84 03/18/24 06:43 Pulse Ox 99 03/13/24 16:45 O2 Del Method Room Air 03/13/24 16:45 Results & Data ([facility]) Current Inpatient Medications Current Inpatient Medications: Current Inpatient Medications Acetaminophen (Acetaminophen 325 Mg Tab) 650 mg PO Q4H PRN PRN Reason: Headache or Minor Fever Stop: 04/12/24 15:59 Last Admin: 03/17/24 15:27 Dose: 650 mg Al Hydrox/Mg Hydrox/Simethicone (Aluminum/Magnesium Susp 30 Ml Udc) 30 ml PO Q4H PRN PRN Reason: GI Upset Stop: 04/12/24 15:59 Bismuth Subsalicylate (Bismuth Subsalicylate 262 Mg Chew) 2 tab PO Q30M PRN PRN Reason: Loose Stool/Diarrhea Stop: 04/12/24 15:59 Divalproex Sodium (Divalproex Extended Release 500 Mg Tab) 500 mg PO HS RAMIN Stop: 04/15/24 21:59 Last Admin: 03/17/24 21:45 Dose: 500 mg Hydroxyzine HCl (Hydroxyzine Hcl 25 Mg Tab) 50 mg PO HSZ PRN PRN Reason: Insomnia Stop: 04/12/24 15:59 Hydroxyzine HCl (Hydroxyzine Hcl 25 Mg Tab) 25 mg PO Q4H PRN PRN Reason: Anxiety Stop: 04/12/24 15:59 Last Admin: 03/17/24 15:28 Dose: 25 mg Magnesium Hydroxide (Magnesium Hydroxide Susp 30 Ml Udc) 30 ml PO DAILY PRN PRN Reason: Constipation Stop: 04/12/24 15:59 Miscellaneous (Remove Nicoderm Patch) 1 each N/A DAILY@0859 RAMIN Stop: 04/13/24 08:58 Last Admin: 03/18/24 10:58 Dose: 1 each Nicotine (Nicotine 21 Mg/24 Hr Tdsy) 1 patch TD QAM RAMIN Stop: 04/12/24 16:14 Last Admin: 03/18/24 10:56 Dose: 1 patch Nicotine Polacrilex (Nicotine Polacrilex 2 Mg Gum) 2 piece MT PRN PRN PRN Reason: Nicotine Withdrawal Symptoms Stop: 04/12/24 15:59 Last Admin: 03/15/24 21:30 Dose: 2 piece Olanzapine (Olanzapine 5 Mg Tablet) 5 mg PO BID PRN PRN Reason: Agitation Stop: 04/12/24 20:59 Olanzapine (Olanzapine 10 Mg/2.1 Ml Sdv) 5 mg IM BID PRN PRN Reason: Agitation Stop: 04/12/24 20:42 Sodium Chloride (Sodium Chloride 0.65% Na Soln 45 Ml ([place])) 1 - 2 sprays NA PRN PRN PRN Reason: Nasal Dryness/Congestion Stop: 04/12/24 15:59 Mental Health & Subst Abuse Tx Psychiatrist Date Of Appointment With Psychiatric Provider: N/A Time of Appointment with Psychiatrist: n/a Therapist Name of Therapist: n/a Date of Therapist Appointment: N/A Time of Therapist Appointment: n/a [employer] Name of Drafter Automotive Design: [facility] ISABELLA Orourke Phone Number for [employer]: [phone] Time of Appointment with [employer]: n/a Case Management Appointment Comment: Amanda - Supports Coordinator at [place] [phone] Post Discharge Appointments Primary Care Physician Name Of Family Doctor/PCP: [facility] Primary [facility] Date of Future Appointment with PCP: 03/31/24 Time of Appointment with PCP: 1:00PM Provider Appointment Comment: This appt. is to refill director of food and beverage services Name of Specialist: KAY (PCP) Ariel Her Phone Number for Specialist: [phone] Date of Appointment with Specialist: 05/21/23 Time of Appointment with Specialist: 9:45AM Specialty Appointment Comment: This is a new pt. appt. to establish services & refill medication
--- NOTE | 2024-03-19 14:34 | Psychiatric Progress Note ---
Date of Service March 19, 2024 Impression / Recommendations Impression Bertrand Ng is a 34-year-old white male, unemployed on disability, domiciled with mother, history of intellectual disability who presents with suicidal and homicidal ideation towards mother with plan to poison or cut throat. 302 petition completed by mother. Admitted on 03/13/24 16:15. A: Patient is tolerating Depakote well. Presents improved sleep and anxiety. Reports no past independent living in the community. Currently does not have a safe discharge plan given intellectual disability and lack of supports. Overall, I spent a total of 25 minutes with this case including review of chart records, nursing report, review of lab work, direct evaluation of the patient at bedside, counseling the patient, multidisciplinary team meeting, orders and documentation in the electronic health record. (1) Impulse control disorder, unspecified: (2) Threatening suicide: (3) Threatening behavior: (4) Intellectual disability: (5) Tobacco dependence with current use: Plan 03/19/2024: Continue medications and treatment plan 03/18/2024: Continue medications and treatment plan. 03/17/2024: Continue medications and treatment plan. 03/16/2024: Discontinue risperidone. start Depakote ER 500 mg at bedtime. 03/15/2024: Increase risperidone to 0.5 mg twice daily. 03/14/2024: The patient was admitted to the [facility] ([facility]) on q15 min checks (behavioral with suicide precautions) for safety. The patient will participate in group, recreational, and milieu therapies and will be offered additional individual and family sessions as clinically appropriate. -Risperidone 0.25mg BID Inventory Assets Strengths: family support, future oriented Needs: case management, independence Suicide Risk Level Suicide Risk Level: Moderate (q15 min suicide checks) Risk Factors Assessment Male: Yes : Yes Do You Have Access To A Gun?: No (n/a) Health Problems: No Mental Health Diagnoses: Yes Substance Use Disorders: No Previous Attempt: No Family History of Suicide: No Previous Psychiatric Hospitalization: No Hopelessness: No Protective Factors Assessment Latter Day Beliefs: No : No Responsible for Young Children: No Employed: No Stable Relationships: Yes Supportive Family: Yes Good Rapport with Provider: Yes Absence of Any Risk Factors Above: No Interval History Identifying Information Bertrand Ng is a 34-year-old white male, unemployed on disability, domiciled with mother, history of intellectual disability who presents with suicidal and homicidal ideation towards mother with plan to poison or cut throat. 302 petition completed by mother. Admitted on 03/13/24 16:15. Chief Complaint "Not sure where to go next" Review of Systems Sleep Information Total Hours of Sleep: 5.5 Meal Information Percent Meal Consumed - Breakfast: 100 Percent Meal Consumed - Lunch: 100 Percent Meal Consumed - Dinner: 100 Subjective Subjective Patient was seen & assessed and interval progress reviewed with treatment team nursing and social work Patient rates his mood is good. Unsure of where he will go next. Met with adult protective services licensing representative and reports meeting went well. Denies SI and HI. Physical Exam Mental Examination Appearance: Disheveled Eye Contact: Direct Eye Contact Motor Behavior: Unremarkable Speech: Delayed Mood: Euthymic Affect: Congruent Thought Process: Circumstantial (at times) and [place] Thought Content: Intact and Poverty of Content Hallucinations: None Insight: Poor Judgement: Poor Vital Signs (Past 24 Hours) Last Vital Signs Temp 36.5 C 03/19/24 06:45 Pulse 90 03/19/24 06:45 Resp 16 03/19/24 06:45 BP 116/72 03/19/24 06:45 Pulse Ox 99 03/13/24 16:45 O2 Del Method Room Air 03/13/24 16:45 Results & Data ([facility]) Current Inpatient Medications Current Inpatient Medications: Current Inpatient Medications Acetaminophen (Acetaminophen 325 Mg Tab) 650 mg PO Q4H PRN PRN Reason: Headache or Minor Fever Stop: 04/12/24 15:59 Last Admin: 03/18/24 17:34 Dose: 650 mg Al Hydrox/Mg Hydrox/Simethicone (Aluminum/Magnesium Susp 30 Ml Udc) 30 ml PO Q4H PRN PRN Reason: GI Upset Stop: 04/12/24 15:59 Bismuth Subsalicylate (Bismuth Subsalicylate 262 Mg Chew) 2 tab PO Q30M PRN PRN Reason: Loose Stool/Diarrhea Stop: 04/12/24 15:59 Divalproex Sodium (Divalproex Extended Release 500 Mg Tab) 500 mg PO HS RAMIN Stop: 04/15/24 21:59 Last Admin: 03/18/24 21:16 Dose: 500 mg Hydroxyzine HCl (Hydroxyzine Hcl 25 Mg Tab) 50 mg PO HSZ PRN PRN Reason: Insomnia Stop: 04/12/24 15:59 Hydroxyzine HCl (Hydroxyzine Hcl 25 Mg Tab) 25 mg PO Q4H PRN PRN Reason: Anxiety Stop: 04/12/24 15:59 Last Admin: 03/17/24 15:28 Dose: 25 mg Magnesium Hydroxide (Magnesium Hydroxide Susp 30 Ml Udc) 30 ml PO DAILY PRN PRN Reason: Constipation Stop: 04/12/24 15:59 Miscellaneous (Remove Nicoderm Patch) 1 each N/A DAILY@0859 [facility] Stop: 04/13/24 08:58 Last Admin: 03/19/24 09:35 Dose: 1 each Nicotine (Nicotine 21 Mg/24 Hr Tdsy) 1 patch TD QAM [facility] Stop: 04/12/24 16:14 Last Admin: 03/19/24 09:32 Dose: 1 patch Nicotine Polacrilex (Nicotine Polacrilex 2 Mg Gum) 2 piece MT PRN PRN PRN Reason: Nicotine Withdrawal Symptoms Stop: 04/12/24 15:59 Last Admin: 03/18/24 18:01 Dose: 2 piece Olanzapine (Olanzapine 5 Mg Tablet) 5 mg PO BID PRN PRN Reason: Agitation Stop: 04/12/24 20:59 Olanzapine (Olanzapine 10 Mg/2.1 Ml Sdv) 5 mg IM BID PRN PRN Reason: Agitation Stop: 04/12/24 20:42 Sodium Chloride (Sodium Chloride 0.65% Na Soln 45 Ml ([place])) 1 - 2 sprays NA PRN PRN PRN Reason: Nasal Dryness/Congestion Stop: 04/12/24 15:59 Mental Health & Subst Abuse Tx Psychiatrist Date Of Appointment With Psychiatric Provider: N/A Time of Appointment with Psychiatrist: n/a Therapist Name of Therapist: n/a Date of Therapist Appointment: N/A Time of Therapist Appointment: n/a Superintendent Laundry Name of Superintendent Laundry: Bernardo Orourke Phone Number for Superintendent Laundry: [phone] Time of Appointment with Superintendent Laundry: n/a Case Management Appointment Comment: Amanda - Supports Coordinator at [place] [phone] Post Discharge Appointments Primary Care Physician Name Of Family Doctor/PCP: [facility] Primary [facility] Date of Future Appointment with PCP: 03/31/24 Time of Appointment with PCP: 1:00PM Provider Appointment Comment: This appt. is to refill newspaper library manager Name of Specialist: KAY (PCP) Ariel Her Phone Number for Specialist: [phone] Date of Appointment with Specialist: 05/21/23 Time of Appointment with Specialist: 9:45AM Specialty Appointment Comment: This is a new pt. appt. to establish services & refill medication Other #1: Name of Aftercare Appointment: APS worker Selena Jordan Phone Number of Aftercare Appointment: [phone] #2: Name of Aftercare Appointment: [facility]-Dr. Foote Phone Number of Aftercare Appointment: Date of Aftercare Appointment: 03/30/24 Time of Aftercare Appointment: 11AM Aftercare Appointment Comment: Orthopedic appointment for left ankle
--- NOTE | 2024-03-20 13:59 | Psychiatric Progress Note ---
Date of Service March 20, 2024 Impression / Recommendations Impression Bertrand Ng is a 34-year-old white male, unemployed on disability, domiciled with mother, history of intellectual disability who presents with suicidal and homicidal ideation towards mother with plan to poison or cut throat. 302 petition completed by mother. Admitted on 03/13/24 16:15. A: Patient is tolerating Depakote well. Presents improved sleep and anxiety. Reports no past independent living in the community. Currently does not have a safe discharge plan given intellectual disability and lack of supports. Awaiting housing placement. Court date for PFA scheduled on Saturday. Overall, I spent a total of 35 minutes with this case including review of chart records, nursing report, review of lab work, direct evaluation of the patient at bedside, counseling the patient, multidisciplinary team meeting, orders and documentation in the electronic health record. (1) Impulse control disorder, unspecified: (2) Threatening suicide: (3) Threatening behavior: (4) Intellectual disability: (5) Tobacco dependence with current use: Plan 03/20/2024: Continue medications and treatment plan 03/19/2024: Continue medications and treatment plan 03/18/2024: Continue medications and treatment plan. 03/17/2024: Continue medications and treatment plan. 03/16/2024: Discontinue risperidone. start Depakote ER 500 mg at bedtime. 03/15/2024: Increase risperidone to 0.5 mg twice daily. 03/14/2024: The patient was admitted to the [facility] ([facility] mental health unit) on q15 min checks (behavioral with suicide precautions) for safety. The patient will participate in group, recreational, and milieu therapies and will be offered additional individual and family sessions as clinically appropriate. -Risperidone 0.25mg BID Inventory Assets Strengths: family support, future oriented Needs: case management, independence Suicide Risk Level Suicide Risk Level: Moderate (q15 min suicide checks) Risk Factors Assessment Male: Yes : Yes Do You Have Access To A Gun?: No (n/a) Health Problems: No Mental Health Diagnoses: Yes Substance Use Disorders: No Previous Attempt: No Family History of Suicide: No Previous Psychiatric Hospitalization: No Hopelessness: No Protective Factors Assessment Hinduism Beliefs: No : No Responsible for Young Children: No Employed: No Stable Relationships: Yes Supportive Family: Yes Good Rapport with Provider: Yes Absence of Any Risk Factors Above: No Interval History Identifying Information Bertrand Ng is a 34-year-old white male, unemployed on disability, domiciled with mother, history of intellectual disability who presents with suicidal and homicidal ideation towards mother with plan to poison or cut throat. 302 petition completed by mother. Admitted on 03/13/24 16:15. Chief Complaint "Pain in joints" Review of Systems Sleep Information Total Hours of Sleep: 6 Meal Information Percent Meal Consumed - Breakfast: 100 Percent Meal Consumed - Lunch: 100 Percent Meal Consumed - Dinner: 100 Subjective Subjective Patient was seen & assessed and interval progress reviewed with treatment team nursing and social work Updates from adult protective services worker indicated they are doing a statewide search for housing placement. Patient reports sleeping well and feels rested. Says that he has joint pain because of the weather. He denies SI and HI. Says that his anxiety is controlled and he is had no angry feelings recently. Reviewed his past history. Per his knowledge he reports no problems with his . He completed 12th grade with special schooling. Mother has intellectual disability. No past independent living. Mother assists with bills and finances. He denies having other health problems. No past brain imaging. No history of seizures or neuropathy. No past employment. Has difficulty organizing himself for tasks due to low frustration tolerance and working memory. Has had trouble establishing relationships due to limited social awareness and lack of trust. Denies having long-term memory problems. Physical Exam Mental Examination Appearance: Disheveled Eye Contact: Direct Eye Contact Motor Behavior: Unremarkable Speech: Delayed Mood: Euthymic Affect: Congruent Thought Process: Circumstantial (at times) and [place] Thought Content: Intact and Poverty of Content Hallucinations: None Insight: Poor Judgement: Poor Vital Signs (Past 24 Hours) Last Vital Signs Temp 36.4 C L 03/20/24 06:36 Pulse 82 03/20/24 06:37 Resp 16 03/20/24 06:36 BP 98/61 L 03/20/24 06:37 Pulse Ox 99 03/13/24 16:45 O2 Del Method Room Air 03/13/24 16:45 Results & Data ([facility]) Current Inpatient Medications Current Inpatient Medications: Current Inpatient Medications Acetaminophen (Acetaminophen 325 Mg Tab) 650 mg PO Q4H PRN PRN Reason: Headache or Minor Fever Stop: 04/12/24 15:59 Last Admin: 03/19/24 17:41 Dose: 650 mg Al Hydrox/Mg Hydrox/Simethicone (Aluminum/Magnesium Susp 30 Ml Udc) 30 ml PO Q4H PRN PRN Reason: GI Upset Stop: 04/12/24 15:59 Bismuth Subsalicylate (Bismuth Subsalicylate 262 Mg Chew) 2 tab PO Q30M PRN PRN Reason: Loose Stool/Diarrhea Stop: 04/12/24 15:59 Divalproex Sodium (Divalproex Extended Release 500 Mg Tab) 500 mg PO HS RAMIN Stop: 04/15/24 21:59 Last Admin: 03/19/24 21:22 Dose: 500 mg Hydroxyzine HCl (Hydroxyzine Hcl 25 Mg Tab) 50 mg PO HSZ PRN PRN Reason: Insomnia Stop: 04/12/24 15:59 Hydroxyzine HCl (Hydroxyzine Hcl 25 Mg Tab) 25 mg PO Q4H PRN PRN Reason: Anxiety Stop: 04/12/24 15:59 Last Admin: 03/17/24 15:28 Dose: 25 mg Magnesium Hydroxide (Magnesium Hydroxide Susp 30 Ml Udc) 30 ml PO DAILY PRN PRN Reason: Constipation Stop: 04/12/24 15:59 Miscellaneous (Remove Nicoderm Patch) 1 each N/A DAILY@0859 [facility] Stop: 04/13/24 08:58 Last Admin: 03/20/24 10:37 Dose: 1 each Nicotine (Nicotine 21 Mg/24 Hr Tdsy) 1 patch TD QAM [facility] Stop: 04/12/24 16:14 Last Admin: 03/20/24 10:33 Dose: 1 patch Nicotine Polacrilex (Nicotine Polacrilex 2 Mg Gum) 2 piece MT PRN PRN PRN Reason: Nicotine Withdrawal Symptoms Stop: 04/12/24 15:59 Last Admin: 03/18/24 18:01 Dose: 2 piece Olanzapine (Olanzapine 5 Mg Tablet) 5 mg PO BID PRN PRN Reason: Agitation Stop: 04/12/24 20:59 Olanzapine (Olanzapine 10 Mg/2.1 Ml Sdv) 5 mg IM BID PRN PRN Reason: Agitation Stop: 04/12/24 20:42 Sodium Chloride (Sodium Chloride 0.65% Na Soln 45 Ml ([place])) 1 - 2 sprays NA PRN PRN PRN Reason: Nasal Dryness/Congestion Stop: 04/12/24 15:59 Mental Health & Subst Abuse Tx Psychiatrist Date Of Appointment With Psychiatric Provider: N/A Time of Appointment with Psychiatrist: n/a Therapist Name of Therapist: n/a Date of Therapist Appointment: N/A Time of Therapist Appointment: n/a Roll Handler Name of Roll Handler: Bernardo MASON [place] Phone Number for Roll Handler: [phone] Time of Appointment with Roll Handler: n/a Case Management Appointment Comment: Amanda - Supports Coordinator at [place] [phone] Post Discharge Appointments Primary Care Physician Name Of Family Doctor/PCP: [facility] ([place] Primary [facility] Date of Future Appointment with PCP: 03/31/24 Time of Appointment with PCP: 1:00PM Provider Appointment Comment: This appt. is to refill dental assistant Name of Specialist: KAY (PCP) Ariel Her Phone Number for Specialist: [phone] Date of Appointment with Specialist: 05/21/23 Time of Appointment with Specialist: 9:45AM Specialty Appointment Comment: This is a new pt. appt. to establish services & refill medication Other #1: Name of Aftercare Appointment: APS worker Selena Jordan Phone Number of Aftercare Appointment: [phone] #2: Name of Aftercare Appointment: [facility]-Dr. Foote Phone Number of Aftercare Appointment: Date of Aftercare Appointment: 03/30/24 Time of Aftercare Appointment: 11AM Aftercare Appointment Comment: Orthopedic appointment for left ankle
[2024-03-20] MEDS: hydrOXYzine HCl 25 MG TAB PO PRN (22:46)
--- NOTE | 2024-03-21 09:19 | Psychiatric Progress Note ---
Date of Service March 21, 2024 Impression / Recommendations Impression Bertrand Ng is a 34-year-old white male, unemployed on disability, domiciled with mother, history of intellectual disability who presents with suicidal and homicidal ideation towards mother with plan to poison or cut throat. 302 petition completed by mother. Admitted on 03/13/24 16:15. A: Stable mood, tolerating medications. Presentation consistent with significant intellectual disability. Currently does not have a safe discharge plan given intellectual disability and lack of supports. Awaiting housing placement. Court date for PFA scheduled on Saturday, unclear if there will be any path to housing prior to that. Overall, I spent a total of 35 minutes on this case including meeting with the patient, reviewing the chart, nursing report, multidisciplinary team meeting, orders, and documentation. (1) Impulse control disorder, unspecified: (2) Threatening suicide: (3) Threatening behavior: (4) Intellectual disability: (5) Tobacco dependence with current use: Plan 03/21/2024: Continue medications and treatment plan 03/20/2024: Continue medications and treatment plan 03/19/2024: Continue medications and treatment plan 03/18/2024: Continue medications and treatment plan. 03/17/2024: Continue medications and treatment plan. 03/16/2024: Discontinue risperidone. start Depakote ER 500 mg at bedtime. 03/15/2024: Increase risperidone to 0.5 mg twice daily. 03/14/2024: The patient was admitted to the [facility] ([facility]) on q15 min checks (behavioral with suicide precautions) for safety. The patient will participate in group, recreational, and milieu therapies and will be offered additional individual and family sessions as clinically appropriate. -Risperidone 0.25mg BID Inventory Assets Strengths: family support, future oriented Needs: case management, independence Suicide Risk Level Suicide Risk Level: Moderate (q15 min suicide checks) (reportedly had SI prior to admission, mood improving, denies SI, feels safe in the hospital ) Risk Factors Assessment Male: Yes : Yes Do You Have Access To A Gun?: No (n/a) Health Problems: No Mental Health Diagnoses: Yes Substance Use Disorders: No Previous Attempt: No Family History of Suicide: No Previous Psychiatric Hospitalization: No Hopelessness: No Protective Factors Assessment Latter Day Beliefs: No : No Responsible for Young Children: No Employed: No Stable Relationships: Yes Supportive Family: Yes Good Rapport with Provider: Yes Absence of Any Risk Factors Above: No Interval History Identifying Information Bertrand Ng is a 34-year-old white male, unemployed on disability, domiciled with mother, history of intellectual disability who presents with suicidal and homicidal ideation towards mother with plan to poison or cut throat. 302 petition completed by mother. Admitted on 03/13/24 16:15. Chief Complaint "Good". Review of Systems Sleep Information Total Hours of Sleep: 6 Sleep Comments: PRN Vistaril and not to be until 0000. Meal Information Percent Meal Consumed - Breakfast: 100 Percent Meal Consumed - Lunch: 100 Percent Meal Consumed - Dinner: 100 Subjective Subjective Patient was seen & assessed and interval progress reviewed with treatment team nursing and social work. Adult APS remains involved, attempting to find respite care as he cannot care for himself. PFA hearing is on Saturday. Requires significant prompting to attend to self-care needs such as showering and brushing his teeth. Agreed to shower last night in exchange for getting hot chocolate afterwards. Today reports his mood is "good" and likes his medication. Sleeping well. Discussed how he struggles with many of his ADLs, cannot grocery shop on his own, cannot cook his own meals, he reflects "it's hard". Continues to miss his mother, he suspects the neighbor lied about him to get him in the hospital. Physical Exam Psychiatric Orientation: alert, oriented to person and oriented to place Apperance: appropriately dressed and + disheveled Eye Contact: good eye contact Motor Behavior: no abnormal motor movements Speech: normal rate/rhythm/volume of speech Affect: euthymic affect Mood: no depressed mood and no anxious mood Thought Process: + concrete thought process Thought Content: reality based without delusions Suicidal Thoughts: denies suicidal thoughts Homicidal Thoughts: denies homicidal thoughts Hallucinations: no auditory hallucinations and no visual hallucinations Estimated Intelligence: + below average estimated intelligence Insight: + poor insight Judgment: + limited judgement Vital Signs (Past 24 Hours) Last Vital Signs Temp 36.6 C 03/21/24 06:57 Pulse 63 03/21/24 06:57 Resp 16 03/21/24 06:57 BP 87/58 L 03/21/24 06:58 Pulse Ox 98 03/21/24 06:57 O2 Del Method Room Air 03/21/24 06:57 Results & Data ([facility] [place]) Current Inpatient Medications Current Inpatient Medications: Current Inpatient Medications Acetaminophen (Acetaminophen 325 Mg Tab) 650 mg PO Q4H PRN PRN Reason: Headache or Minor Fever Stop: 04/12/24 15:59 Last Admin: 03/20/24 21:12 Dose: 650 mg Al Hydrox/Mg Hydrox/Simethicone (Aluminum/Magnesium Susp 30 Ml Udc) 30 ml PO Q4H PRN PRN Reason: GI Upset Stop: 04/12/24 15:59 Bismuth Subsalicylate (Bismuth Subsalicylate 262 Mg Chew) 2 tab PO Q30M PRN PRN Reason: Loose Stool/Diarrhea Stop: 04/12/24 15:59 Divalproex Sodium (Divalproex Extended Release 500 Mg Tab) 500 mg PO HS RAMIN Stop: 04/15/24 21:59 Last Admin: 03/20/24 21:10 Dose: 500 mg Hydroxyzine HCl (Hydroxyzine Hcl 25 Mg Tab) 50 mg PO HSZ PRN PRN Reason: Insomnia Stop: 04/12/24 15:59 Last Admin: 03/20/24 22:46 Dose: 50 mg Hydroxyzine HCl (Hydroxyzine Hcl 25 Mg Tab) 25 mg PO Q4H PRN PRN Reason: Anxiety Stop: 04/12/24 15:59 Last Admin: 03/17/24 15:28 Dose: 25 mg Magnesium Hydroxide (Magnesium Hydroxide Susp 30 Ml Udc) 30 ml PO DAILY PRN PRN Reason: Constipation Stop: 04/12/24 15:59 Miscellaneous (Remove Nicoderm Patch) 1 each N/A DAILY@0859 [facility] Stop: 04/13/24 08:58 Last Admin: 03/20/24 10:37 Dose: 1 each Nicotine (Nicotine 21 Mg/24 Hr Tdsy) 1 patch TD QAM [facility] Stop: 04/12/24 16:14 Last Admin: 03/20/24 10:33 Dose: 1 patch Nicotine Polacrilex (Nicotine Polacrilex 2 Mg Gum) 2 piece MT PRN PRN PRN Reason: Nicotine Withdrawal Symptoms Stop: 04/12/24 15:59 Last Admin: 03/18/24 18:01 Dose: 2 piece Olanzapine (Olanzapine 5 Mg Tablet) 5 mg PO BID PRN PRN Reason: Agitation Stop: 04/12/24 20:59 Olanzapine (Olanzapine 10 Mg/2.1 Ml Sdv) 5 mg IM BID PRN PRN Reason: Agitation Stop: 04/12/24 20:42 Sodium Chloride (Sodium Chloride 0.65% Na Soln 45 Ml ([place])) 1 - 2 sprays NA PRN PRN PRN Reason: Nasal Dryness/Congestion Stop: 04/12/24 15:59 Mental Health & Subst Abuse Tx Psychiatrist Date Of Appointment With Psychiatric Provider: N/A Time of Appointment with Psychiatrist: n/a Therapist Name of Therapist: n/a Date of Therapist Appointment: N/A Time of Therapist Appointment: n/a Underwear Hemmer Name of Underwear Hemmer: [facility] ISABELLA Orourke Phone Number for Underwear Hemmer: [phone] Time of Appointment with Underwear Hemmer: n/a Case Management Appointment Comment: Amanda - Supports Coordinator at [place] [phone] Post Discharge Appointments Primary Care Physician Name Of Family Doctor/PCP: [facility] ([place] Primary Care Date of Future Appointment with PCP: 03/31/24 Time of Appointment with PCP: 1:00PM Provider Appointment Comment: This appt. is to refill nib adjuster Name of Specialist: KAY (PCP) Ariel Her Phone Number for Specialist: [phone] Date of Appointment with Specialist: 05/21/23 Time of Appointment with Specialist: 9:45AM Specialty Appointment Comment: This is a new pt. appt. to establish services & refill medication
--- NOTE | 2024-03-22 09:00 | Psychiatric Progress Note ---
Date of Service March 22, 2024 Impression / Recommendations Impression Bertrand Ng is a 34-year-old white male, unemployed on disability, domiciled with mother, history of intellectual disability who presents with suicidal and homicidal ideation towards mother with plan to poison or cut throat. 302 petition completed by mother. Admitted on 03/13/24 16:15. A: Mood remains stable, continues to tolerate Depakote. Presentation consistent with significant intellectual disability and impulse control disorder. Currently does not have a safe discharge plan given intellectual disability with significant impairment of adaptive functioning and lack of supports. Awaiting housing placement as given adaptive functioning impairments he cannot live on his own. Court date for PFA scheduled on Saturday, unclear if there will be any path to housing prior to that. Overall, I spent a total of 20 minutes on this case including meeting with the patient, reviewing the chart, nursing report, multidisciplinary team meeting, orders, and documentation. (1) Impulse control disorder, unspecified: (2) Threatening suicide: (3) Threatening behavior: (4) Intellectual disability: (5) Tobacco dependence with current use: Plan 03/22/2024: Continue medications and treatment plan 03/21/2024: Continue medications and treatment plan 03/20/2024: Continue medications and treatment plan 03/19/2024: Continue medications and treatment plan 03/18/2024: Continue medications and treatment plan. 03/17/2024: Continue medications and treatment plan. 03/16/2024: Discontinue risperidone. start Depakote ER 500 mg at bedtime. 03/15/2024: Increase risperidone to 0.5 mg twice daily. 03/14/2024: The patient was admitted to the [facility] ([facility]) on q15 min checks (behavioral with suicide precautions) for safety. The patient will participate in group, recreational, and milieu therapies and will be offered additional individual and family sessions as clinically appropriate. -Risperidone 0.25mg BID Inventory Assets Strengths: family support, future oriented Needs: case management, independence Suicide Risk Level Suicide Risk Level: Moderate (q15 min suicide checks) (reportedly had SI prior to admission, mood improving, denies SI, feels safe in the hospital ) Risk Factors Assessment Male: Yes : Yes Do You Have Access To A Gun?: No (n/a) Health Problems: No Mental Health Diagnoses: Yes Substance Use Disorders: No Previous Attempt: No Family History of Suicide: No Previous Psychiatric Hospitalization: No Hopelessness: No Protective Factors Assessment Roman Catholic Beliefs: No : No Responsible for Young Children: No Employed: No Stable Relationships: Yes Supportive Family: Yes Good Rapport with Provider: Yes Absence of Any Risk Factors Above: No Interval History Identifying Information Bertrand Ng is a 34-year-old white male, unemployed on disability, domiciled with mo ther, history of intellectual disability who presents with suicidal and homicidal ideation towards mother with plan to poison or cut throat. 302 petition completed by mother. Admitted on 03/13/24 16:15. Chief Complaint "Good". Review of Systems Sleep Information Total Hours of Sleep: 5.45 Sleep Comments: PRN Vistaril Meal Information Percent Meal Consumed - Breakfast: 100 Percent Meal Consumed - Lunch: 100 Percent Meal Consumed - Dinner: 100 Subjective Subjective Patient was seen & assessed and interval progress reviewed with treatment team nursing and social work. Had some back pain last evening. Enjoys watching TV with peers. Likes to discuss the weather. Got prn dose of Vistaril last evening, stays up late and sleeps in a bit. Today reports mild low back pain, doesn't desire medication or heating pad for this, attributes it to the weather. Continues to feel the medication is helping him avoid saying things if he feels upset or mad. Sleeping well. Hopefully he can attend PFA hearing tomorrow if housing option secured. Physical Exam Psychiatric Orientation: alert, oriented to person and oriented to place Apperance: appropriately dressed and + disheveled Eye Contact: + fair eye contact Motor Behavior: no abnormal motor movements Speech: normal rate/rhythm/volume of speech (some impaired articulation, limited vocabulary, slow at times) Affect: euthymic affect Mood: no depressed mood and no anxious mood Thought Process: + concrete thought process Thought Content: reality based without delusions Suicidal Thoughts: denies suicidal thoughts Homicidal Thoughts: denies homicidal thoughts Hallucinations: no auditory hallucinations and no visual hallucinations Estimated Intelligence: + below average estimated intelligence Insight: + poor insight Judgment: + limited judgement Vital Signs (Past 24 Hours) Last Vital Signs Temp 36.4 C 03/22/24 06:55 Pulse 53 L 03/22/24 06:55 Resp 16 03/22/24 06:55 BP 98/60 L 03/22/24 06:55 Pulse Ox 98 03/22/24 06:55 O2 Del Method Room Air 03/22/24 06:55 Results & Data ([facility]) Current Inpatient Medications Current Inpatient Medications: Current Inpatient Medications Acetaminophen (Acetaminophen 325 Mg Tab) 650 mg PO Q4H PRN PRN Reason: Headache or Minor Fever Stop: 04/12/24 15:59 Last Admin: 03/21/24 17:50 Dose: 650 mg Al Hydrox/Mg Hydrox/Simethicone (Aluminum/Magnesium Susp 30 Ml Udc) 30 ml PO Q4H PRN PRN Reason: GI Upset Stop: 04/12/24 15:59 Bismuth Subsalicylate (Bismuth Subsalicylate 262 Mg Chew) 2 tab PO Q30M PRN PRN Reason: Loose Stool/Diarrhea Stop: 04/12/24 15:59 Divalproex Sodium (Divalproex Extended Release 500 Mg Tab) 500 mg PO HS RAMIN Stop: 04/15/24 21:59 Last Admin: 03/21/24 20:58 Dose: 500 mg Hydroxyzine HCl (Hydroxyzine Hcl 25 Mg Tab) 50 mg PO HSZ PRN PRN Reason: Insomnia Stop: 04/12/24 15:59 Last Admin: 03/21/24 22:18 Dose: 50 mg Hydroxyzine HCl (Hydroxyzine Hcl 25 Mg Tab) 25 mg PO Q4H PRN PRN Reason: Anxiety Stop: 04/12/24 15:59 Last Admin: 03/17/24 15:28 Dose: 25 mg Magnesium Hydroxide (Magnesium Hydroxide Susp 30 Ml Udc) 30 ml PO DAILY PRN PRN Reason: Constipation Stop: 04/12/24 15:59 Miscellaneous (Remove Nicoderm Patch) 1 each N/A DAILY@0859 [facility] Stop: 04/13/24 08:58 Last Admin: 03/21/24 09:46 Dose: 1 each Nicotine (Nicotine 21 Mg/24 Hr Tdsy) 1 patch TD QAM [facility] Stop: 04/12/24 16:14 Last Admin: 03/21/24 09:44 Dose: 1 patch Nicotine Polacrilex (Nicotine Polacrilex 2 Mg Gum) 2 piece MT PRN PRN PRN Reason: Nicotine Withdrawal Symptoms Stop: 04/12/24 15:59 Last Admin: 03/18/24 18:01 Dose: 2 piece Olanzapine (Olanzapine 5 Mg Tablet) 5 mg PO BID PRN PRN Reason: Agitation Stop: 04/12/24 20:59 Olanzapine (Olanzapine 10 Mg/2.1 Ml Sdv) 5 mg IM BID PRN PRN Reason: Agitation Stop: 04/12/24 20:42 Sodium Chloride (Sodium Chloride 0.65% Na Soln 45 Ml ([place])) 1 - 2 sprays NA PRN PRN PRN Reason: Nasal Dryness/Congestion Stop: 04/12/24 15:59 Mental Health & Subst Abuse Tx Psychiatrist Date Of Appointment With Psychiatric Provider: N/A Time of Appointment with Psychiatrist: n/a Therapist Name of Therapist: n/a Date of Therapist Appointment: N/A Time of Therapist Appointment: n/a Bunch Breaker Machine Operator Name of Bunch Breaker Machine Operator: Bernardo Orourke Phone Number for Bunch Breaker Machine Operator: [phone] Time of Appointment with Bunch Breaker Machine Operator: n/a Case Management Appointment Comment: Amanda - Supports Coordinator at [place] [phone] Post Discharge Appointments Primary Care Physician Name Of Family Doctor/PCP: [facility] ([place] Primary Care Date of Future Appointment with PCP: 03/31/24 Time of Appointment with PCP: 1:00PM Provider Appointment Comment: This appt. is to refill instructional systems designer Name of Specialist: KAY (PCP) Ariel Her Phone Number for Specialist: [phone] Date of Appointment with Specialist: 05/21/23 Time of Appointment with Specialist: 9:45AM Specialty Appointment Comment: This is a new pt. appt. to establish services & refill medication
--- NOTE | 2024-03-23 08:53 | Psychiatric Progress Note ---
Date of Service March 23, 2024 Impression / Recommendations Impression Bertrand Ng is a 34-year-old white male, unemployed on disability, domiciled with mother, history of intellectual disability who presents with suicidal and homicidal ideation towards mother with plan to poison or cut throat. 302 petition completed by mother. Admitted on 03/13/24 16:15. A: Mood remains stable, continues to tolerate Depakote. Presentation consistent with significant intellectual disability and impulse control disorder. Currently does not have a safe discharge plan given intellectual disability with significant impairment of adaptive functioning and lack of supports. Awaiting supportive housing placement as given adaptive functioning impairments he cannot live on his own. Depakote level and LFTs tonight. Overall, I spent a total of 25 minutes on this case including meeting with the patient, reviewing the chart, nursing report, multidisciplinary team meeting, orders, and documentation. (1) Impulse control disorder, unspecified: (2) Threatening suicide: (3) Threatening behavior: (4) Intellectual disability: (5) Tobacco dependence with current use: Plan 03/23/2024: Depakote level and LFTs tonight prior to HS dose. 03/22/2024: Continue medications and treatment plan 03/21/2024: Continue medications and treatment plan 03/20/2024: Continue medications and treatment plan 03/19/2024: Continue medications and treatment plan 03/18/2024: Continue medications and treatment plan. 03/17/2024: Continue medications and treatment plan. 03/16/2024: Discontinue risperidone. start Depakote ER 500 mg at bedtime. 03/15/2024: Increase risperidone to 0.5 mg twice daily. 03/14/2024: The patient was admitted to the [facility] ([facility] mental health unit) on q15 min checks (behavioral with suicide precautions) for safety. The patient will participate in group, recreational, and milieu therapies and will be offered additional individual and family sessions as clinically appropriate. -Risperidone 0.25mg BID Inventory Assets Strengths: family support, future oriented Needs: case management, independence Suicide Risk Level Suicide Risk Level: Low (q15 min observation checks) (reportedly had SI prior to admission, mood has been improved and consistently denying SI and feels safe in the hospital ) Risk Factors Assessment Male: Yes : Yes Do You Have Access To A Gun?: No (n/a) Health Problems: No Mental Health Diagnoses: Yes Substance Use Disorders: No Previous Attempt: No Family History of Suicide: No Previous Psychiatric Hospitalization: No Hopelessness: No Protective Factors Assessment Amish Beliefs: No : No Responsible for Young Children: No Employed: No Stable Relationships: Yes Supportive Family: Yes Good Rapport with Provider: Yes Absence of Any Risk Factors Above: No Interval History Identifying Information Bertrand Ng is a 34-year-old white male, unemployed on disability, domiciled with mother, history of intellectual disability who presents with suicidal and homicidal ideation towards mother with plan to poison or cut throat. 302 petition completed by mother. Admitted on 03/13/24 16:15. Chief Complaint "Good". Review of Systems Sleep Information Total Hours of Sleep: 6 Sleep Comments: PRN Vistaril Meal Information Percent Meal Consumed - Breakfast: 100 Percent Meal Consumed - Lunch: 100 Percent Meal Consumed - Dinner: 100 Subjective Subjective Patient was seen & assessed and interval progress reviewed with treatment team nursing and social work. Slept well. Reports positive mood today. Met with a loss prevention representative from a local community supportive living environment, he's hopeful about this possibility. No medication side effects. Enjoys telling me about upcoming weather predictions and results of the football games from yesterday. Physical Exam Psychiatric Orientation: alert, oriented to person and oriented to place Apperance: appropriately dressed and + disheveled Eye Contact: + fair eye contact Motor Behavior: no abnormal motor movements Speech: normal rate/rhythm/volume of speech (some impaired articulation, limited vocabulary, slow at times) Affect: euthymic affect Mood: no depressed mood and no anxious mood Thought Process: + concrete thought process Thought Content: reality based without delusions Suicidal Thoughts: denies suicidal thoughts Homicidal Thoughts: denies homicidal thoughts Hallucinations: no auditory hallucinations and no visual hallucinations Estimated Intelligence: + below average estimated intelligence Insight: + poor insight Judgment: + limited judgement Vital Signs (Past 24 Hours) Last Vital Signs Temp 36.1 C L 03/23/24 06:58 Pulse 60 03/23/24 06:58 Resp 16 03/23/24 06:58 BP 98/60 L 03/23/24 06:58 Pulse Ox 99 03/23/24 06:58 O2 Del Method Room Air 03/23/24 06:58 Results & Data ([facility]) Current Inpatient Medications Current Inpatient Medications: Current Inpatient Medications Acetaminophen (Acetaminophen 325 Mg Tab) 650 mg PO Q4H PRN PRN Reason: Headache or Minor Fever Stop: 04/12/24 15:59 Last Admin: 03/22/24 17:35 Dose: 650 mg Al Hydrox/Mg Hydrox/Simethicone (Aluminum/Magnesium Susp 30 Ml Udc) 30 ml PO Q4H PRN PRN Reason: GI Upset Stop: 04/12/24 15:59 Bismuth Subsalicylate (Bismuth Subsalicylate 262 Mg Chew) 2 tab PO Q30M PRN PRN Reason: Loose Stool/Diarrhea Stop: 04/12/24 15:59 Divalproex Sodium (Divalproex Extended Release 500 Mg Tab) 500 mg PO HS RAMIN Stop: 04/15/24 21:59 Last Admin: 03/22/24 21:01 Dose: 500 mg Hydroxyzine HCl (Hydroxyzine Hcl 25 Mg Tab) 50 mg PO HSZ PRN PRN Reason: Insomnia Stop: 04/12/24 15:59 Last Admin: 03/22/24 21:01 Dose: 50 mg Hydroxyzine HCl (Hydroxyzine Hcl 25 Mg Tab) 25 mg PO Q4H PRN PRN Reason: Anxiety Stop: 04/12/24 15:59 Last Admin: 03/17/24 15:28 Dose: 25 mg Magnesium Hydroxide (Magnesium Hydroxide Susp 30 Ml Udc) 30 ml PO DAILY PRN PRN Reason: Constipation Stop: 04/12/24 15:59 Miscellaneous (Remove Nicoderm Patch) 1 each N/A DAILY@0859 [facility] Stop: 04/13/24 08:58 Last Admin: 03/22/24 09:53 Dose: 1 each Nicotine (Nicotine 21 Mg/24 Hr Tdsy) 1 patch TD QAM [facility] Stop: 04/12/24 16:14 Last Admin: 03/22/24 09:49 Dose: 1 patch Nicotine Polacrilex (Nicotine Polacrilex 2 Mg Gum) 2 piece MT PRN PRN PRN Reason: Nicotine Withdrawal Symptoms Stop: 04/12/24 15:59 Last Admin: 03/18/24 18:01 Dose: 2 piece Olanzapine (Olanzapine 5 Mg Tablet) 5 mg PO BID PRN PRN Reason: Agitation Stop: 04/12/24 20:59 Olanzapine (Olanzapine 10 Mg/2.1 Ml Sdv) 5 mg IM BID PRN PRN Reason: Agitation Stop: 04/12/24 20:42 Sodium Chloride (Sodium Chloride 0.65% Na Soln 45 Ml ([place])) 1 - 2 sprays NA PRN PRN PRN Reason: Nasal Dryness/Congestion Stop: 04/12/24 15:59 Mental Health & Subst Abuse Tx Psychiatrist Date Of Appointment With Psychiatric Provider: N/A Time of Appointment with Psychiatrist: n/a Therapist Name of Therapist: n/a Date of Therapist Appointment: N/A Time of Therapist Appointment: n/a Engineer Design And Construction Name of Engineer Design And Construction: [facility] ISABELLA [place] Phone Number for Engineer Design And Construction: [phone] Time of Appointment with Engineer Design And Construction: n/a Case Management Appointment Comment: Amanda - Supports Coordinator at [place] [phone] Post Discharge Appointments Primary Care Physician Name Of Family Doctor/PCP: [facility] ([place] Primary [facility] Date of Future Appointment with PCP: 03/31/24 Time of Appointment with PCP: 1:00PM Provider Appointment Comment: This appt. is to refill development chemist Name of Specialist: KAY (PCP) Ariel Her Phone Number for Specialist: [phone] Date of Appointment with Specialist: 05/21/23 Time of Appointment with Specialist: 9:45AM Specialty Appointment Comment: This is a new pt. appt. to establish services & refill medication
[2024-03-23 21:57] LABS: Albumin Level 4.7 gm/dl (3.4-5.0); Bilirubin,Total 0.2 mg/dl (0.2-1.0); Total Protein 6.9 gm/dl (6.0-8.3)
--- NOTE | 2024-03-24 08:31 | Psychiatric Progress Note ---
Date of Service March 24, 2024 Impression / Recommendations Impression Bertrand Ng is a 34-year-old white male, unemployed on disability, domiciled with mother, history of intellectual disability who presents with suicidal and homicidal ideation towards mother with plan to poison or cut throat. 302 petition completed by mother. Admitted on 03/13/24 16:15. A: Mood remains stable, continues to tolerate Depakote. Depakote level without signs of toxicity, LFTs/liver function normal and reassuring for ongoing use of Depakote. No inidication or need to adjust dose further at this time given good effect and well tolerated. Accepted to supportive living at [facility], awaiting bed availability. Currently does not have a safe discharge plan until that time given intellectual disability with significant impairment of adaptive functioning and lack of supports. Overall, I spent a total of 25 minutes on this case including meeting with the patient, reviewing the chart, nursing report, multidisciplinary team meeting, orders, and documentation. (1) Impulse control disorder, unspecified: (2) Threatening suicide: (3) Threatening behavior: (4) Intellectual disability: (5) Tobacco dependence with current use: Plan 03/24/2024: Continue medications and tx plan. 03/23/2024: Depakote level and LFTs tonight prior to HS dose. 03/22/2024: Continue medications and treatment plan 03/21/2024: Continue medications and treatment plan 03/20/2024: Continue medications and treatment plan 03/19/2024: Continue medications and treatment plan 03/18/2024: Continue medications and treatment plan. 03/17/2024: Continue medications and treatment plan. 03/16/2024: Discontinue risperidone. start Depakote ER 500 mg at bedtime. 03/15/2024: Increase risperidone to 0.5 mg twice daily. 03/14/2024: The patient was admitted to the [facility] ([facility] unit) on q15 min checks (behavioral with suicide precautions) for safety. The patient will participate in group, recreational, and milieu therapies and will be offered additional individual and family sessions as clinically appropriate. -Risperidone 0.25mg BID Inventory Assets Strengths: family support, future oriented Needs: case management, independence Suicide Risk Level Suicide Risk Level: Low (q15 min observation checks) (reportedly had SI prior to admission, mood has been improved and consistently denying SI and feels safe in the hospital ) Risk Factors Assessment Male: Yes : Yes Do You Have Access To A Gun?: No (n/a) Health Problems: No Mental Health Diagnoses: Yes Substance Use Disorders: No Previous Attempt: No Family History of Suicide: No Previous Psychiatric Hospitalization: No Hopelessness: No Protective Factors Assessment Buddhist Beliefs: No : No Responsible for Young Children: No Employed: No Stable Relationships: Yes Supportive Family: Yes Good Rapport with Provider: Yes Absence of Any Risk Factors Above: No Interval History Identifying Information Bertrand Ng is a 34-year-old white male, unemployed on disability, domiciled with mother, history of intellectual disability who presents with suicidal and homicidal ideation towards mother with plan to poison or cut throat. 302 petition completed by mother. Admitted on 03/13/24 16:15. Chief Complaint "That's my worry". Review of Systems Sleep Information Total Hours of Sleep: 6 Sleep Comments: Vistaril Meal Information Percent Meal Consumed - Breakfast: 100 Percent Meal Consumed - Lunch: 100 Percent Meal Consumed - Dinner: 100 Subjective Subjective Patient was seen & assessed and interval progress reviewed with treatment team nursing and social work. Had PFA hearing yesterday which was granted against him. Upset after this and rated his mood as "1" and low last evening. Today reflects on feeling his side of the story wasn't heard at the trial which was frustrating but he has moved past this. He is happy about plan for [facility] as supportive living option but worries it could be like past places he's lived where initially the landlord seemed nice and helpful and then things changed. Reflects that in the past he's often gotten blammed for others smoking inside or making threats and worries this could happen to him again. Working on thinking about his fiances. Denies any medication issues. Reviewed normal labwork which he is pleased about. Feels his anger is controlled. Physical Exam Psychiatric Orientation: alert, oriented to person and oriented to place Apperance: appropriately dressed and + disheveled Eye Contact: + fair eye contact Motor Behavior: no abnormal motor movements Speech: normal rate/rhythm/volume of speech (some impaired articulation, limited vocabulary, slow at times) Affect: euthymic affect Mood: no depressed mood and no anxious mood Thought Process: + concrete thought process Thought Content: reality based without delusions Suicidal Thoughts: denies suicidal thoughts Homicidal Thoughts: denies homicidal thoughts Hallucinations: no auditory hallucinations and no visual hallucinations Estimated Intelligence: + below average estimated intelligence Insight: + poor insight Judgment: + limited judgement Vital Signs (Past 24 Hours) Last Vital Signs Temp 36.4 C L 03/24/24 06:40 Pulse 57 L 03/24/24 06:40 Resp 18 03/24/24 06:40 BP 96/65 L 03/24/24 06:40 Pulse Ox 97 03/24/24 06:40 O2 Del Method Room Air 03/24/24 06:40 Results & Data ([facility]) Laboratory Results Laboratory Results - last 24 hr 03/23/24 21:24 Total Bilirubin 0.2 Direct Bilirubin 0.0 AST 16 ALT 16 Alkaline Phosphatase 66 Total Protein 6.9 Albumin 4.7 Valproic Acid 37 L Current Inpatient Medications Current Inpatient Medications: Current Inpatient Medications Acetaminophen (Acetaminophen 325 Mg Tab) 650 mg PO Q4H PRN PRN Reason: Headache or Minor Fever Stop: 04/12/24 15:59 Last Admin: 03/23/24 17:33 Dose: 650 mg Al Hydrox/Mg Hydrox/Simethicone (Aluminum/Magnesium Susp 30 Ml Udc) 30 ml PO Q4H PRN PRN Reason: GI Upset Stop: 04/12/24 15:59 Bismuth Subsalicylate (Bismuth Subsalicylate 262 Mg Chew) 2 tab PO Q30M PRN PRN Reason: Loose Stool/Diarrhea Stop: 04/12/24 15:59 Divalproex Sodium (Divalproex Extended Release 500 Mg Tab) 500 mg PO HS RAMIN Stop: 04/15/24 21:59 Last Admin: 03/23/24 21:05 Dose: 500 mg Hydroxyzine HCl (Hydroxyzine Hcl 25 Mg Tab) 50 mg PO HSZ PRN PRN Reason: Insomnia Stop: 04/12/24 15:59 Last Admin: 03/23/24 21:19 Dose: 50 mg Hydroxyzine HCl (Hydroxyzine Hcl 25 Mg Tab) 25 mg PO Q4H PRN PRN Reason: Anxiety Stop: 04/12/24 15:59 Last Admin: 03/23/24 17:33 Dose: 25 mg Magnesium Hydroxide (Magnesium Hydroxide Susp 30 Ml Udc) 30 ml PO DAILY PRN PRN Reason: Constipation Stop: 04/12/24 15:59 Miscellaneous (Remove Nicoderm Patch) 1 each N/A DAILY@[id number] RAMIN Stop: 04/13/24 08:58 Last Admin: 03/23/24 09:16 Dose: 1 each Nicotine (Nicotine 21 Mg/24 Hr Tdsy) 1 patch TD QAM RAMIN Stop: 04/12/24 16:14 Last Admin: 03/23/24 09:12 Dose: 1 patch Nicotine Polacrilex (Nicotine Polacrilex 2 Mg Gum) 2 piece MT PRN PRN PRN Reason: Nicotine Withdrawal Symptoms Stop: 04/12/24 15:59 Last Admin: 03/23/24 14:00 Dose: 2 piece Olanzapine (Olanzapine 5 Mg Tablet) 5 mg PO BID PRN PRN Reason: Agitation Stop: 04/12/24 20:59 Olanzapine (Olanzapine 10 Mg/2.1 Ml Sdv) 5 mg IM BID PRN PRN Reason: Agitation Stop: 04/12/24 20:42 Sodium Chloride (Sodium Chloride 0.65% Na Soln 45 Ml ([place])) 1 - 2 sprays NA PRN PRN PRN Reason: Nasal Dryness/Congestion Stop: 04/12/24 15:59 Mental Health & Subst Abuse Tx Psychiatrist Name of Psychiatrist: Hawa Mejia - [address] [place] [address] Psychiatrist's Date Of Appointment With Psychiatric Provider: 03/31/24 Time of Appointment with Psychiatrist: 2:40PM arrival for 3pm appt (In person appt) Psychiatric Appointment Comment: 24 hour cancellation policy, bring ID and insurance cards to the appt Therapist Name of Therapist: n/a Date of Therapist Appointment: N/A Time of Therapist Appointment: n/a Real Estate Instructor Name of Real Estate Instructor: [facility] ISABELLA Orourke Phone Number for Real Estate Instructor: [phone] Time of Appointment with Real Estate Instructor: n/a Case Management Appointment Comment: Amanda - Supports Coordinator at [place] [phone] Post Discharge Appointments Primary Care Physician Name Of Family Doctor/PCP: [facility] Date of Future Appointment with PCP: 03/31/24 Time of Appointment with PCP: 1:00PM Provider Appointment Comment: This appt. is to refill cyber reverse engineer Name of Specialist: KAY (PCP) Ariel Her Phone Number for Specialist: [phone] Date of Appointment with Specialist: 05/21/23 Time of Appointment with Specialist: 9:45AM Specialty Appointment Comment: This is a new pt. appt. to establish services & refill medication
--- NOTE | 2024-03-25 08:00 | Discharge Summary ---
Date of Service March 25, 2024 History of Present Illness Per admission H&P by Dr. Grewal: Patient is a limited historian. Patient reports that the downstairs neighbor was mimicking his voice and reported SI and HI. Mother was having trouble with cell phone and believes this to be the cause. He reports this has never happened in the past. He denies current SI and HI. Throughout his explanation he presented nonlinear speech at times however improved on directed questioning. He reports no intention of poisoning her drink and that they often share beverages together so that would never happen. Reports being close to his mother and wants to go home. He does not member his mother's phone number. He denies past incidents such as this. He denies past psychiatric history. Chart review shows that on June 27, 2023 he made threatening statements patient does not remember this. Reports smoking 2 packs of cigarettes a day and chews 2 cans of tobacco and reports current withdrawal headache and cravings. He denies drug or alcohol use. Reports fair sleep and appetite preceding the event. Listens to [employer] music and this brings him sophie. 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 Is looking forward to pity in 2 weeks and wants to get out by then. He does not have a horse trader however is interested. Reports that mother is guardian however is unsure of the paperwork and unable to explain the process of took for her to get guardianship over him. Reports feeling better on risperidone and is calmer. Provides permission for us to contact his mother. Called patient's mother (HECTOR CHOW [phone]): did not connect, unable to leave [phone]: wrong number, [facility] Physical Exam Vital Signs (Past 24 Hours) Last Vital Signs Temp 36.4 C L 03/25/24 07:23 Pulse 63 03/25/24 07:23 Resp 18 03/25/24 07:23 BP 96/65 L 03/25/24 07:23 Pulse Ox 97 03/25/24 07:23 O2 Del Method Room Air 03/25/24 06:41 Principal Diagnosis Unspecified Impulse Control Disorder Psychiatric Data See daily stay summary. In short, patient was engaged with the s ocial/therapeutic milieu of the unit, safety was maintained and the patient was cooperative with care. Medication changes included initiation of Depakote ER 500mg HS as off-label use for periods of impulsive anger and emotional reactivity and Vistaril 50mg HS prn for insomnia/anxiety and they tolerated this well. Baseline labs of CBC with diff, LFTs, electrolytes, and weight were preformed (see labwork results below). Depakote level at discharge was 37 mcg/mL. Recommend repeat CBC with diff, and LFTs at one month. Then CBC with diff, depakote level, and LFTs annually or anytime symptoms arise. . No support session was held due to lack of supports but he met with staff from [facility] and safety plan was completed prior to discharge. They participated in safety planning and in discussions about ways to seek support and recognizing warning signs and utilizing coping skills. Reviewed ways to have their safety plan and contacts easily available should thoughts of SI re-emerge in the future. Reviewed importance of seeking emergency care should SI intensify, worsen or should they feel unsafe in the future which they agree to do. On the day of discharge they stated their mood was "good" and remained future-oriented including moving to [facility] and smoking cigarettes again and engaging in aftercare appointments for psychiatry. Day of Discharge Assessment Today the patient voices readiness for discharge. They note improvement in mood and anxiety. They deny thoughts of harm to self or others. Thoughts are organized and they are clinically improved from admission. There is no evidence of psychosis. They improved in the hospital with support and medication adjustments. They agree to take medications as prescribed and keep follow-up appointments. At the time of the discharge they are deemed to be stable and appropriate for outpatient level of care. They are not deemed to be at imminent risk of harm to self or others. They are aware of emergency and crisis services. Knows to call 911 or go to nearest emergency care center if in a crisis which cannot be handled as an outpatient. Suicide risk assessment: Acute risk is low given improvement in mood and denial of SI, lack of access to lethal means, hopefulness, more supportive living environment. Chronic risk is low to moderate given some non-modifiable risk factors: periods of impulsivity, emotional reactivity, poor social support, childhood trauma, but also with protective factors including sense of responsibility to family and social supports, outpatient care in place, willingness to engage with treatment, desire to form therapeutic relationships, and self-observation. Counseled on ways to reduce acute and chronic risk including engaging with outpatient providers, using safety plan if needed, utilizing supports, taking medication, and using coping skills. Modifiable risk factors of SI and HI were addressed during hospitalization through development of new coping skills, safety planning, and medication adjustments. Acute risk of harm to others is low given denial of HI and no vocalized HI nor aggression during hospitalization and improved emotional control. Chronic risk is low to moderate given reported history of verbal outbursts but also with no known history of physical aggression, medication adherence, and increased outpatient supports. Discharge physical exam: See admission H&P, MSE per above and day of discharge summary. Overall, I spent a total of 35 minutes on this case including meeting with the patient, reviewing the chart, nursing report, multidisciplinary team meeting, discharge orders, anticipatory planning, safety planning, risk assessment and documentation. Transition of Care Transition Of Care Record: was reviewed with the patient Advance Directives Advance Directives Information Provided: No Advance Directives: No Mental Health Advance Directive: No Advance Directives on File: No Living Will: No Power of Aerial Installer: No Advance Directives Reason:: Declines as Mental Health Visit. Suicide Risk Level Suicide Risk Level Comments: Acute risk is low given denial of SI, future-oriented, see further assessment above. Risk Factors Assessment Male: Yes : Yes Do You Have Access To A Gun?: No Health Problems: No Mental Health Diagnoses: Yes Substance Use Disorders: No Previous Attempt: No Family History of Suicide: No Previous Psychiatric Hospitalization: No Hopelessness: No Protective Factors Assessment Sabianist Beliefs: No : No Responsible for Young Children: No Employed: No Stable Relationships: Yes Supportive Family: No Good Rapport with Provider: Yes Absence of Any Risk Factors Above: No Discharge Data Consultations 03/13/24 05:55 Consult Psychiatry Routine Lab Results 03/12/24 03/12/24 03/23/24 21:26 22:50 21:24 WBC 5.96 RBC 4.28 L Hgb 14.0 Hct 42.5 MCV 99.3 MCH 32.7 MCHC 32.9 RDW Std Deviation 46.4 H RDW Coeff of [place] 12.6 Plt Count 244 MPV 9.5 Immature Gran % (Auto) 0.2 Neut % (Auto) 75.8 Lymph % (Auto) 16.6 [place] % (Auto) 6.7 Eos % (Auto) 0.2 Baso % (Auto) 0.5 Neut # (Auto) 4.52 Lymph # (Auto) 0.99 L [place] # (Auto) 0.40 Eos # (Auto) 0.01 Baso # (Auto) 0.03 Immature Gran # (Auto) 0.01 Sodium 141 Potassium 3.6 Chloride 106 Carbon Dioxide 26 Anion Gap 9 BUN 11 Creatinine 1.07 Est Cr Clr Drug Dosing 75.7 eGFR 94.56 BUN/Creatinine Ratio 10.3 Glucose 98 Calcium 9.6 Total Bilirubin 0.2 0.2 Direct Bilirubin 0.0 AST 19 16 ALT 13 16 Alkaline Phosphatase 65 66 Total Protein 7.6 6.9 Albumin 4.9 4.7 Globulin 2.7 Albumin/Globulin Ratio 1.8 TSH 1.452 Urine Color Yellow Urine Appearance Clear Urine pH 6.0 Ur Specific [place] 1.005 Urine Protein Negative Urine Glucose (UA) Negative Urine Ketones Negative Urine Blood Negative Urine Nitrite Negative Urine Bilirubin Negative Urine Urobilinogen Negative Ur Leukocyte Esterase Negative Salicylates 9.1 Urine Opiates Screen Neg Ur Methadone, Qual Neg Urine Fentanyl Screen Neg Acetaminophen 48 H 27 Urine Barbiturates Neg Valproic Acid 37 L Ur Phencyclidine (PCP) Neg U Amphetamin/Meth Scrn Neg MDMA (Ecstasy) Screen Neg U Benzodiazepines Scrn Neg Ur Cocaine Metabolite Neg U Marijuana (THC) Screen Neg Ethyl Alcohol mg/dL < 10.0 SARS-CoV-2, RNA, NAAT NEGATIVE Hospital Course (1) Impulse control disorder, unspecified: (2) Intellectual disability: (3) Threatening suicide: (4) Threatening behavior: (5) Tobacco dependence with current use: Plan 03/25/2024: Discharge to [facility] and stable for discharge 03/24/2024: Continue medications and tx plan. 03/23/2024: Depakote level and LFTs tonight prior to HS dose. 03/22/2024: Continue medications and treatment plan 03/21/2024: Continue medications and treatment plan 03/20/2024: Continue medications and treatment plan 03/19/2024: Continue medications and treatment plan 03/18/2024: Continue medications and treatment plan. 03/17/2024: Continue medications and treatment plan. 03/16/2024: Discontinue risperidone. start Depakote ER 500 mg at bedtime. 03/15/2024: Increase risperidone to 0.5 mg twice daily. 03/14/2024: The patient was admitted to the [facility] ([facility] inpatient mental health unit) on q15 min checks (behavioral with suicide precautions) for safety. The patient will participate in group, recreational, and milieu therapies and will be offered additional individual and family sessions as clinically appropriate. -Risperidone 0.25mg BID Mental Health & Subst Abuse Tx Psychiatrist Name of Psychiatrist: Hawa Mejia - [address] [facility] [address] Psychiatrist's Date Of Appointment With Psychiatric Provider: 03/31/24 Time of Appointment with Psychiatrist: 2:40PM arrival for 3pm appt (In person appt) Psychiatric Appointment Comment: 24 hour cancellation policy, bring ID and insurance cards to the appt Psychiatrist Release of Information: Obtained, Reviewed and Signed Therapist Name of Therapist: n/a Date of Therapist Appointment: N/A Time of Therapist Appointment: n/a Brick Offbearer Name of Brick Offbearer: [facility] Phone Number for Brick Offbearer: [phone] Time of Appointment with Brick Offbearer: n/a Case Management Appointment Comment: Amanda - Supports Coordinator at [place] [phone] Brick Offbearer Release of Information: Obtained, Reviewed and Signed Post Discharge Appointments Primary Care Physician Name Of Family Doctor/PCP: [facility] Date of Future Appointment with PCP: 03/31/24 Time of Appointment with PCP: 1:00PM Provider Appointment Comment: This appt. is to refill medication Home Health Services Home Health Services:: None Specialist Name of Specialist: KAY (PCP) Ariel Her Phone Number for Specialist: [phone] Date of Appointment with Specialist: 05/21/23 Time of Appointment with Specialist: 9:45AM Specialty Appointment Comment: This is a new pt. appt. to establish services & refill medication Other #1: Name of Aftercare Appointment: APS worker Selena Jordan Phone Number of Aftercare Appointment: [phone] #2: Name of Aftercare Appointment: [facility]-Dr. Foote Phone Number of Aftercare Appointment: Date of Aftercare Appointment: 03/30/24 Time of Aftercare Appointment: 11AM Aftercare Appointment Comment: Orthopedic appointment for left ankle Discharge Plan Discharge Items Patient Disposition: Home - Self-Care Reason For Visit: UNSPECIFIED DEPRESSION Discharge Diagnosis: Impulse control disorder, unspecified: Condition on Discharge: Good Activity: Resume your previous activity Non-emergency contact: Primary Care Provider, Psychiatrist and Cigarette Examiner Call non-emergency contact if: you have any medication questions and your symptoms worsen Follow-up/Referrals: PCP,NO [Primary Care Provider] - Diet: Regular Addtl Attending Provider Instructions: SPECIAL CARE INSTRUCTIONS: 1. Follow through with your scheduled aftercare appointments. If unable to keep an appointment, please call to reschedule. 2. Take your medication only as prescribed. Medication should not be changed or stopped without the approval of your doctor. In the event of worsening symptoms or concerns about side effects, contact your doctor immediately. 3. Utilize new healthy coping skills, anger management skills, and stress management skills learned during your hospitalization. Journal feelings and process them with a support person. Identify stressors or situations that may result in relapse, deterioration or inappropriate behaviors and develop a p stella to deal with those issues. 4. If your coping skills are ineffective and you are in crisis, contact your outpatient providers for direction. If unable to reach your providers, please call the [facility] CRISIS LINE AT , go to the [facility] walk-in center at [address] [place] [address], [facility] [address], or go to the closest Emergency Room. 5. Avoid alcohol and un-prescribed drugs. 6. You have been provided with the Mental Health Advance Directives Pamphlet for your review. 7. Your condition is stable for discharge to outpatient level of care, but recovery is an ongoing process. Ifthoughts to harm yourself or others return, follow the safety plan developed during your stay. Planning for a safe return home includes securing weapons. Our treatment team recommends weaponsbe removed from the home until your outpatient provider reassesses your progress. In rare cases where the items themselvescannot be removed, guns and ammunitionshould be secured separatelyand keys stored by a reliable personoutside of the home. If you were admitted on an involuntary commitment, the police or other legal authorities may be involved in this process. AFTERCARE APPOINTMENTS: * Please call your insurance company prior to your scheduled appointment to confirm your aftercare providers are covered. Take your insurance information to your appointments. WHO TO CALL AND WHEN: Medical Emergencies: For questions or emergencies related to your hospital stay, please contact the Inpatient Behavioral Health Unit at [phone]. A assistant grocery is on-call 19/11 for the Behavioral Health Unit for emergencies At any time you feel your situation is an emergency, you may also call 911 immediately. National Crisis Hotline: 988 Pending Studies at Discharge: No Stand-Alone Forms: [facility], Smoking Cessation Medications and DC Order Prescriptions: New divalproex [Depakote ER] 500 mg tablet extended release 24 hr 500 mg PO HS 30 Days Qty: 30 0RF hydroxyzine HCl 50 mg tablet 50 mg PO HS PRN (Reason: insomnia/anxiety) 30 Days Qty: 30 0RF Discharge Orders: Discharge Order (Routine); Ordered 03/25/24 Ordered By: Kendal Larry Admission Data Admit Date/Time: 03/13/24 16:15 Attending Provider: Kendal Larry Admit Provider: Kendal Larry Primary Care Provider: PCP,NO Other Interventions: Discharge Summary Assessment (RN) Last Done: 03/25/24 07:23 PSY Interdisciplinary Discharge Planning Last Done: 03/25/24 07:21 Coding Level of Care Code 28851 D/C day mgmt > 30 min Diagnoses Impulse control disorder, unspecified F63.9 Intellectual disability F79 Threatening suicide R45.851 Threatening behavior R46.89 Tobacco dependence with current use F17.200
== END 2024-03-25 08:50 | disposition home or self-care (01) | DRG 886 ==
LOC: ED 21:00 → 3S 03-13 15:48 → SUATTDRO 03-13 16:15 → 3S 03-13 16:15

== ENCOUNTER 2024-08-19 08:53 | Observation (INO) ==
--- NOTE | 2024-08-07 09:07 | Anesthesiology Consultation ---
Date of Service August 07, 2024 Assessment & Plan (1) Encounter for pre-operative examination: - Infectious disease screening: Per assessment on 08/06/24- No known recent infectious disease contacts or current infectious disease symptoms. Patient at [facility]. Will need preop Covid testing per protocol. - PCP visit (08/04/24): "34 year old male presents today for ER follow up.. seen again in the local ER 07/28/24 due to recurrent RUQ pain after eating.. No specific interventions completed.. has been taking dicyclomine QID. Asking for dose to be increased.. having elective cholecystectomy on 08/19/24.." "Plan Pat ient seen with [facility] caregiver. Advised there is little the ER or PCP can do for him at this point. Caregiver states that due to multiple ER visits, they have had to institute a procedure/protocol that must be followed before he can be taken to the ER. Scheduled for cholecystectomy on 08/19/24.. Compliant with dicyclomine." Chart Review Chart Review: Acceptable Risk for Surgery and Patient NOT seen in Pre Admission Testing History Surgery Operation Date: 08/19/24 07:00 Proposed Procedures p Robotic Laparoscopic Cholecystectomy - Benjy Boogie DO, FACS Height/Weight Height: 5 ft 9 in Weight: 55.338 kg Allergies Allergy/AdvReac Type Severity Reaction Status Date / Time ibuprofen AdvReac Intermediate Vomiting Verified 08/07/24 09:01 naproxen AdvReac Intermediate Vomiting Verified 08/07/24 09:01 Medications Home Medications Medication Instructions Recorded Confirmed Last Taken hydrocortisone 1 % topical cream 1 applic topical BID PRN skin 03/31/24 08/06/24 Unknown (Cortisone (hydrocortisone)) irritation #28.35 grams hydroxyzine HCl 50 mg tablet 50 mg PO QPM 05/21/24 08/06/24 07/26/24 olanzapine 15 mg tablet 15 mg PO QPM 05/21/24 08/06/24 07/26/24 acetaminophen 500 mg tablet 1,000 mg PO Q8H PRN Pain 07/02/24 08/06/24 Unknown (Tylenol Extra Strength) ipiefpp-wydpnhkwwixsh-zvztfsjn 250 2 tab PO DAILY PRN headaches 07/02/24 08/06/24 Unknown mg-250 mg-65 mg tablet (Migraine Relief) lidocaine HCl 4 % topical liquid 1 ea topical .EVERY 6-8 HOURS PRN 07/02/24 08/06/24 Unknown roll-on (Aspercreme (lidocaine Pain HCl)) omeprazole 40 mg capsule,delayed 40 mg PO QDL 07/02/24 08/06/24 07/26/24 release hydroxyzine HCl 50 mg tablet 100 mg PO HS 07/12/24 08/06/24 07/25/24 dicyclomine 10 mg capsule 10 mg PO QID #120 caps 08/04/24 08/06/24 Unknown bismuth subsalicylate 262 mg/15 mL 524 mg PO BID 08/06/24 08/06/24 Unknown oral suspension (Pepto-Bismol) Past Medical History Medical History Chronic abdominal pain [place] History of bleeding ulcers (2013) Impulse control disorder Intellectual disability "Moderate" Intermittent explosive disorder Left foot pain Left foot tendonitis- currently wearing a special boot Oppositional defiant disorder Pervasive developmental disorder Threatening behavior Per records: 02/2024 - inpatient at [facility] then transferred to [facility] Past Family History Family History Other Cancer Diabetes No family history of adverse response to anesthesia Past Surgical History Surgical History History of appendectomy History of colonoscopy History of esophagogastroduodenoscopy (EGD) Social History Smoking Status: Current every day smoker tobacco type: cigarettes and smokeless tobacco Smoking cigarettes per day: 20 cigarettes daily (advised on npo policy) Do You Dip or Chew Tobacco: Yes (1 can/day (advised on npo policy)) Hx Alcohol Use: No Hx Substance Use: No Lab Results Anesthesia Preop Results Results Anesthesia Widget: WBC 5.61 K/ul (4.8-10.8) 08/02/24 Hgb 13.5 g/dl (14.0-18.0) L 08/02/24 Hct 40.5 % (42.0-52.0) L 08/02/24 Plt 211 K/uL (130-400) 08/02/24 Na 136 mmol/L (136-145) 08/02/24 K 4.3 mmol/L (3.5-5.1) 08/02/24 Cl 106 mmol/L (98-107) 08/02/24 CO2 25 mmol/L (21-32) 08/02/24 BUN 23 mg/dl (6-23) 08/02/24 Creat 0.97 mg/dl (0.6-1.4) 08/02/24 Glucose Level 94 mg/dl (70-99(Fasting)) 08/02/24 PT 11.1 Seconds (9.0-12.0) 06/28/24 PTT 25 Seconds (21-31) 06/28/24 INR 1.0 (0.9-1.1) 06/28/24 Urine Color Yellow 08/02/24 Urine Appearance Clear (Clear) 08/02/24 Urine pH 6.0 (4.5-7.5) 08/02/24 Urine Specific [place] 1.018 (1.000-1.030) 08/02/24 Urine Protein Negative (Negative) 08/02/24 Urine Glucose (UA) Negative (Negative) 08/02/24 Urine Ketones Negative (Negative) 08/02/24 Urine Blood Negative (Negative) 08/02/24 Urine Nitrite Negative (Negative) 08/02/24 Urine Bilirubin Negative (Negative) 08/02/24 Urine Urobilinogen Negative (Negative) 08/02/24 Urine Leukocyte Esterase Negative (Negative) 08/02/24 Urine WBC (Auto) 0-5 /hpf (0-5) 06/29/24 Urine RBC (Auto) 0-2 /hpf (0-2) 06/29/24 Urine Hyaline Casts (Auto) 0-2 /lpf (0-2) 06/29/24 Urine Epithelial Cells (Auto) 0-2 /hpf (0-2) 06/29/24 Urine Bacteria (Auto) None Seen (None Seen) 06/29/24 Testing Electrocardiogram Date: 07/23/24 NSR at 89bpm. NS TWA. Chest X-Ray Date: 08/02/24 Findings: + NAD
--- NOTE | 2024-08-07 09:13 | PAT Medication Instructions ---
Medication Instructions Date of Service August 07, 2024 Home Medications Medication Instructions Recorded hydrocortisone 1 % topical cream 1 applic topical BID PRN skin 03/31/24 (Cortisone (hydrocortisone)) irritation #28.35 grams dicyclomine 10 mg capsule 10 mg PO QID #120 caps 08/04/24 hydrocortisone 1 % topical cream (Cortisone (hydrocortisone)) 1 applic topical BID PRN skin irritation hydroxyzine HCl 50 mg tablet 50 mg PO QPM olanzapine 15 mg tablet 15 mg PO QPM acetaminophen 500 mg tablet (Tylenol Extra Strength) 1,000 mg PO Q8H PRN Pain qcmmtoz-vokmqivnejrud-hgfiwhgi 250 mg-250 mg-65 mg tablet (Migraine Relief) 2 tab PO DAILY PRN headaches lidocaine HCl 4 % topical liquid roll-on (Aspercreme (lidocaine HCl)) 1 ea topical .EVERY 6-8 HOURS PRN Pain omeprazole 40 mg capsule,delayed release 40 mg PO QDL hydroxyzine HCl 50 mg tablet 100 mg PO HS dicyclomine 10 mg capsule 10 mg PO QID bismuth subsalicylate 262 mg/15 mL oral suspension (Pepto-Bismol) 524 mg PO BID Continue as directed omeprazole 40 mg capsule,delayed release 40 mg PO QDL STOP taking 24 hours before surgery hydrocortisone 1 % topical cream (Cortisone (hydrocortisone)) 1 applic topical BID PRN skin irritation lidocaine HCl 4 % topical liquid roll-on (Aspercreme (lidocaine HCl)) 1 ea topical .EVERY 6-8 HOURS PRN Pain DO NOT take the morning of surgery dicyclomine 10 mg capsule 10 mg PO QID bismuth subsalicylate 262 mg/15 mL oral suspension (Pepto-Bismol) 524 mg PO BID Take morning of surgery With a small sip of water, OTHERWISE NOTHING TO EAT OR DRINK AFTER MIDNIGHT: acetaminophen 500 mg tablet (Tylenol Extra Strength) 1,000 mg PO Q8H PRN Pain (if needed) Take evening before surgery acetaminophen 500 mg tablet (Tylenol Extra Strength) 1,000 mg PO Q8H PRN Pain (if needed) hydroxyzine HCl 50 mg tablet 100 mg PO HS dicyclomine 10 mg capsule 10 mg PO QID bismuth subsalicylate 262 mg/15 mL oral suspension (Pepto-Bismol) 524 mg PO BID Other Notes If you have any questions please call us at [phone] or [phone] or [phone] or [phone]
[2024-08-19] MEDS: LACTATED RINGER'S 1,000 ML IV SCH (09:14)
[2024-08-19] MEDS ORDERED: KETOROLAC 30 MG/ML VIAL ONE (10:15)
[2024-08-19] MEDS ORDERED: ONDANSETRON INJ 2 MG/ML 2 ML VIAL ONE (10:15)
[2024-08-19] MEDS ORDERED: LIDOCAINE 2% 2 ML VIAL/AMP(20MG/ML) INFIL ONE (10:15)
[2024-08-19] MEDS ORDERED: PROPOFOL IV EMULSION 10 MG/ML 20 ML VIAL IV ONE (10:15)
[2024-08-19] MEDS ORDERED: DEXAMETHASONE SOD INJ 4 MG/ML VIAL ONE (10:15)
[2024-08-19] MEDS ORDERED: MIDAZOLAM HCL 1 MG/ML 2ML VIAL ONE (10:15)
[2024-08-19] MEDS ORDERED: ROCURONIUM BROMIDE 10 MG/ML 5 ML VIAL IV ONE (10:15)
[2024-08-19] MEDS ORDERED: fentaNYL citrate PF 100 MCG/2 ML VIAL ONE ×3 (10:16→11:37)
[2024-08-19] MEDS ORDERED: ATROPINE SULFATE 0.1 MG/ML 10ML SYR IV PRN (10:32)
[2024-08-19] MEDS ORDERED: fentaNYL citrate PF 100 MCG/2 ML VIAL IV PRN (10:32)
[2024-08-19] MEDS ORDERED: ONDANSETRON INJ 2 MG/ML 2 ML VIAL IV PRN ×2 (10:32→13:50)
[2024-08-19] MEDS ORDERED: HYDROmorphone INJ 1 MG/ML SYRINGE IV PRN (10:32)
[2024-08-19] MEDS ORDERED: ePHEDrine sulfate 50 MG/ML AMP IV PRN (10:32)
[2024-08-19] MEDS: INDOCYANINE GREEN 25 MG VIAL INJ SCH (10:51)
--- NOTE | 2024-08-19 10:53 | History & Physical Bridge Note ---
Date of Service August 19, 2024 History & Physical Bridge Note I have examined the patient, reviewed the History & Physical and in the interval since the performance of the History & Physical I have noted the following changes of clinical significance: no changes noted
[2024-08-19] MEDS: ceFAZolin 2000MG 2,000 MG/15 ML SYR IV SCH (10:59)
[2024-08-19] MEDS ORDERED: SUGAMMADEX SODIUM 200 MG/2 ML VIAL IV ONE (11:40)
[2024-08-19] MEDS: BUPIVACAINE 0.5 % 5 MG/1 ML MPF 30ML VIAL ONE (11:50)
--- NOTE | 2024-08-19 11:52 | Operative Report ---
PG Post Operative Report Pre & Post Diagnosis Operation Date: 08/19/24 10:00 Pre-Op Diagnosis: Right Sided Abdominal Pain Post-Op Diagnosis: Right Sided Abdominal Pain I identified the patient and participated in the time-out.: Yes Procedure Operation Date: 08/19/24 10:00 Actual Procedures p Robotic Assisted Laparoscopic Cholecystectomy(Not Applicable) - Benjy Boogie DO, FACS Surgeon Benjy Boogie DO, FACS Gaming Director Melissa Beasley Estimated Blood Loss 5 Findings Consistent with Post-Op Diagnosis Critical view of safety obtained, cystic duct and artery clipped and divided Specimens Gallbladder Anesthesia Type General Complications none Disposition Accompanied Patient To Recovery: No Disposition: Recovery Room Indications 34-year-old male with postprandial right upper quadrant abdominal pain, HIDA scan with EF of 93%, ultrasound normal, concern for biliary colic. Plan for robotic cholecystectomy. The risks of the procedure were discussed, all questions were answered, and the patient agreed to proceed with surgery as planned. Description of Procedure The patient was properly identified, consented, and taken to the operating room where he was placed in the supine position. 2.5 mg of indocyanine green were administered IV approximately 45 min prior to the surgery. General endotracheal anesthesia was induced. SCDs and a safety belt were placed. Preoperative antibiotics were administered. The patient's abdomen was prepped and draped in the standard sterile fashion. A surgical timeout was performed and all parties were in agreement that this was the correct patient and procedure to be performed and we continued as planned. An incision was made just above the umbilicus and to the right of midline. Veress needle was inserted and saline drop test confirmed entry to the abdomen. The abdomen was insufflated with carbon dioxide which the patient tolerated incident. Veress needle was removed and the abdomen is entered using the Optiview technique and a 5 mm camera. The introducer was removed and the abdomen inspected. No damage from initial trocar placement or Veress needle placement was identified. There were no significant abnormalities to the 4 quadrants of the abdomen. 8 mm robotic ports were then placed on the left and right. An additional 5 mm dental front office assistant port was placed in the lateral right subcostal position. The patient was placed in reverse Trendelenburg position and rotated towards the left. The robot was then docked and the camera and robotic instruments were inserted. The dome of the gallbladder was grasped by the dental front office assistant and retracted towards the left upper quadrant and the infundibulum was retracted toward the right lower quadrant revealing Calot's triangle. Peritoneal attachments were taken down with electrocautery and blunt dissection. The cystic duct and artery were circumferentially dissected. A window of safety was obtained showing the cystic duct entering the gallbladder with no aberrant structures noted. We were able to identify the cystic duct utilizing the ICG. The cystic duct was doubly clipped and divided. The cystic artery was clipped proximally and cauterized and then divided. The gallbladder was then lifted off the gallbladder fossa with electrocautery. The right upper quadrant was irrigated and hemostasis was found to be good. The gallbladder was placed in an Endo Catch bag and removed through the one of the port sites. The instruments were removed and the robot was undocked. The trochars were removed and the abdomen was allowed to collapse. The skin of all ports was closed with 4-0 Monocryl subcuticular sutures. Dermabond was placed over the wounds. The patient was extubated in the operating room and taken to the PACU where he recovered without apparent incident. All sponge, instrument and needle counts were correct at the conclusion of the procedure. The patient tolerated the procedure well. The nurse practitioner was present and scrubbed for the entirety of the case and was essential in positioning the patient, prepping and draping, retraction and exposure, driving the laparoscope, exchange of the robotic instruments removal of the gallbladder, closure of the incisions, and placement of the dressings. I attest to the content of the Intraoperative Record and any orders documented therein. Any exceptions are noted below.
--- NOTE | 2024-08-19 12:53 | Anesthesiology Progress Note ---
Date of Service August 19, 2024 Anesthesia Post Procedure Vital Signs Vital Signs: Temp Pulse Pulse Resp BP Pulse Ox O2 Del Method 08/19/24 12:35 85 17 122/77 99 Room Air 08/19/24 12:25 83 16 120/78 99 Room Air 08/19/24 12:15 86 20 127/79 100 Nasal Cannula 08/19/24 12:12 36.3 C L 96 H 19 98/61 L 98 Nasal Cannula 08/19/24 09:09 Room Air 08/19/24 09:00 36.5 C 70 18 126/70 98 Room Air O2 Flow Rate 08/19/24 12:35 0 08/19/24 12:25 0 08/19/24 12:15 2 08/19/24 12:12 4 08/19/24 09:09 08/19/24 09:00 Pain Intensity Abdomen: Pain Intensity: 4 Transfer of Care Handoff Completed per policy Notes Mental Status: alert / awake / arousable Patient Amnestic to Procedure: Yes Nausea / Vomiting: adequately controlled Pain: adequately controlled Airway Patency, RR, SpO2: stable & adequate BP & HR: stable & adequate Hydration State: stable & adequate Anesthetic Complications: no major complications apparent
[2024-08-19] MEDS ORDERED: MoRPHine SULFATE 2 MG/ML CARP IV PRN (13:50)
[2024-08-19] MEDS ORDERED: HYDROCORTISONE 1% CRM 30 GM TUBE EXT PRN (13:52)
[2024-08-19] MEDS: traMADol HCL 50 MG TABLET PO PRN (14:14)
[2024-08-19] MEDS: DICYCLOMINE HCL 10 MG CAP PO SCH (14:15)
[2024-08-19] MEDS ORDERED: ACETAMINOPHEN 325 MG TAB PO PRN (14:48)
[2024-08-19] MEDS: NICOTINE 21 MG/24 HR TDSY TD SCH (18:19)
[2024-08-19 19:30] VITALS: RESP 16
[2024-08-19] MEDS: MoRPHine SULFATE 2 MG/ML CARP IV PRN (21:20)
[2024-08-19] MEDS: OLANZapine 5 MG TABLET PO SCH (21:50)
[2024-08-19] MEDS: hydrOXYzine HCl 25 MG TAB PO SCH ×2 (21:50→21:51)
[2024-08-20 07:37] VITALS: BP 109/67; PULSE 52; TEMP 97.7; O2SAT 99
[2024-08-20] MEDS: traMADol HCL 50 MG TABLET PO PRN (07:46)
[2024-08-20] MEDS: PANTOprazole 40 MG TAB PO SCH (07:47)
--- NOTE | 2024-08-20 07:48 | Surgery Progress Note ---
Date of Service August 20, 2024 Assessment & Plan (1) S/P cholecystectomy: Plan: Patient is POD #1 s/p Robotic Assisted Laparoscopic Cholecystectomy with Dr. Boogie -Doing well this morning, tolerating diet without issue, and pain is well controlled -Discussed discharge instructions with the patient which include: No heavy lifting (>10lbs) No driving while taking pain medication He may shower, use soap and water at surgical sites. Do NOT soak incisions f/u with Dr. Boogie in 2 weeks for post-operative check up Admission and Anticipated Discharge Date Admission Date: August 19, 2024 Subjective Patient states he feels well this morning. He does have some anticipated post- operative pain however it is well controlled. Tolerating regular diet without any nausea or vomiting VSS and he is afebrile Physical Exam Constitutional: WD/WN, vitals as above Respiratory: normal respiratory effort, lungs clear to auscultation Cardiovascular: RRR, no murmur, no edema Gastrointestinal (Abdomen): Abdomen soft, nondistended, +appropriate TTP over surgical sites. Incisions with Dermabond in place, they are c/d/i without any overlying signs of infection Skin: no rashes, warm and dry Results & Data Vital Signs (Past 12 Hours) Vital Signs Temp Pulse Resp BP BP Pulse Ox O2 Del Method 08/20/24 07:37 36.5 C 52 L 16 109/67 99 Room Air 08/20/24 03:00 36.4 C L 84 16 113/74 97 Room Air 08/19/24 22:58 36.4 C L 60 16 123/77 96 Room Air PG Care Time/CCT Total # of Minutes Spent Total Time Spent with Patient: Total time spent is greater than 50% in coordination of care (as documented) at patient's floor/unit and/or counseling patient: [place] [address] Post Operative Follow-Up Patient Type Established History Problem Focused Exam Problem Focused Medical Decision Making Straight Forward Diagnoses S/P cholecystectomy Z90.49
--- NOTE | 2024-08-20 10:26 | Discharge Summary ---
Date of Service August 20, 2024 Admission Exam Per Admitting Provider Physical Exam Constitutional WD/WN, vitals as above Respiratory normal respiratory effort, lungs clear to auscultation Cardiovascular RRR, no murmur, no edema Gastrointestinal (Abdomen) Inspection/Auscultation: + abdominal surgical scar Percussion/Palpation: + abdomen tender (Endorses diffuse tenderness with minimal palpation, voluntary guarding) and abdomen soft; no guarding and abdomen not rigid Principal Diagnosis Biliary Colic Discharge Exam Physical Exam Constitutional: WD/WN, vitals as above Respiratory: normal respiratory effort, lungs clear to auscultation Cardiovascular: RRR, no murmur, no edema Gastrointestinal (Abdomen): Abdomen soft, nondistended, +appropriate TTP over surgical sites. Incisions with Dermabond in place, they are c/d/i without any overlying signs of infection Skin: no rashes, warm and dry Discharge Data Allergies Allergy/AdvReac Type Severity Reaction Status Date / Time ibuprofen AdvReac Intermediate Vomiting Verified 08/19/24 09:17 naproxen AdvReac Intermediate Vomiting Verified 08/19/24 09:17 Procedures Performed Operation Date: 08/19/24 10:00 Actual Procedures p Robotic Assisted Laparoscopic Cholecystectomy(Not Applicable) - Benjy Boogie DO, [facility] Hospital Course (1) S/P cholecystectomy: Patient is a 34-year-old male who underwent Robotic Assisted Laparoscopic Cholecystectomy by Dr. Boogie on 08/19/2024 for biliary colic. The patient was admitted to the surgical service post-operatively for observation overnight. The patient was able to tolerate a regular diet after surgery without issues of abdominal pain, nausea, or vomiting. His pain was overall well controlled with pain medication. The patient otherwise remained hemodynamically stable and had no additional issues. On POD #1 the patient was doing well and was ultimately found stable for discharge. The patient was instructed to follow up in the outpatient setting in 2 weeks, no heavy lifting greater than 10 pounds, and to not soak incisions in water. Total Time Total Time Spent Total Time Spent (In Minutes): > 30 minutes Discharge Plan Discharge Items Patient Disposition: Home - Self-Care Reason For Visit: Biliary Colic Discharge Diagnosis: laparoscopic cholecystectomy Activity: Per Instructions section Lifting: No more than 10 pounds Bathing Comment: may shower; no soaking in tubs/pools x 2 weeks Exercise/Sports: Wait until after follow-up appointment Driving/Machine Use: no driving while taking narcotics for pain Non-emergency contact: Surgeon Call non-emergency contact if: you have any medication questions, your symptoms worsen, your pain is not controlled, you have a fever, your temperature is above 101.5, your wound has increased redness, your wound has increased drainage and your wound pain has increased Follow-up/Referrals: Yin Robles CRNP [Primary Care Provider] - Benjy Boogie DO, FACS [Physician] - 09/01/24 1:30 pm ( follow up in 1-2 weeks ) Diet: Regular Ambulatory Orders: Covid-19(SARS Cov2 RNA) Fusion (Routine) Timeframe: 20240817 Facility: [facility] - Location: [facility] [place] Ordered By: Benjy Boogie Addtl Attending Provider Instructions: SPECIAL CARE INSTRUCTIONS: * Dressing: You have surgical glue called dermabond on your surgical site incisions. You may shower with this on. This will tend to come off within a couple of weeks. Do not pick at it. * You may shower tomorrow . NO soaking in pools or baths for 2 weeks * No lifting greater than 10lbs. No exercise until cleared by surgeon. Light walking is accepted. * No driving while taking narcotic pain medication * No drinking alcohol while taking narcotic pain medication * May use Ibuprofen/Tylenol over the counter for pain as tolerated. Do not exceed 3grams of Tylenol per 24 hours * Expect some swelling and bruising. * Diet Regular Call your doctor if: * Temperature above 101 degrees, nausea/vomiting, fever/chills * Pain not relieved by pain medicine ordered * There is increased drainage or redness from any incision * You have any unanswered questions or concerns [phone]. FOLLOW UP VISIT: If not already scheduled, please call the office for a follow-up visit. Office Pending Studies at Discharge: Yes Studies:: surgical pathology Stand-Alone Forms: My [facility], Pain - Opioid Pain Management Medications and DC Order Prescriptions: New tramadol 50 mg tablet 50 mg PO Q6H PRN (Reason: pain, for initial therapy, max 4 tabs/day) Qty: 15 0RF Continued hydroxyzine HCl 50 mg tablet 50 mg PO QPM olanzapine 15 mg tablet 15 mg PO QPM Rx Instructions: DAILY AT 1800 ondansetron 4 mg tablet,disintegrating 4 mg PO .COMPLEX Rx Instructions: 4 mg orally every 4-6 hours as needed for nausea and vomiting; Dissolve on the tongue dicyclomine 10 mg capsule 10 mg PO QID Qty: 120 0RF hydrocortisone [Cortisone (hydrocortisone)] 1 % cream 1 applic topical BID PRN (Reason: skin irritation) Qty: 28.35 3RF Rx Instructions: apply to affected areas of itching as needed bismuth subsalicylate [Pepto-Bismol] 262 mg/15 mL Suspension 524 mg PO BID Migraine Relief 250-250-65 mg Tablet 2 tab PO DAILY MDD 2 TABS PRN (Reason: headaches) lidocaine HCl [Aspercreme (lidocaine HCl)] 4 % Liquid Roll-On 1 ea TOPICAL .EVERY 6-8 HOURS MDD 3 applications PRN (Reason: Pain) omeprazole 40 mg capsule,delayed release(DR/EC) 40 mg PO QDL acetaminophen [Tylenol Extra Strength] 500 mg tablet 1,000 mg PO Q8H PRN (Reason: Pain) hydroxyzine HCl 50 mg tablet 100 mg PO HS Discharge Orders: Discharge Order (Routine); Ordered 08/20/24 Ordered By: Karena Liang/Other Patient Handouts: Cholecystectomy Admission Data Admit Date/Time: 08/19/24 11:33 Attending Provider: Benjy Boogie Admit Provider: Benjy Boogie Primary Care Provider: Yin Robles Other Interventions: Discharge Summary Assessment (RN) Last Done: 08/20/24 10:05 [place] [address] INP/OBS DISCH >30 MIN Patient Type Established History Problem Focused Exam Problem Focused Medical Decision Making Straight Forward Diagnoses S/P cholecystectomy Z90.49
== END 2024-08-20 11:35 | disposition home or self-care (01) ==
LOC: 3N 08:53 → ASU 08:53